=== PATIENT | male | born 1955 | race Caucasian/White ===

== ENCOUNTER 2017-03-19 05:40 | Day surgery (SDC) | payer OTHER ==
[2017-02-24 09:52] VITALS: Ht 170.2 cm; Wt 86.4 kg
[2017-03-19] VITALS (7 sets, daily range): BP systolic 101–156; BP diastolic 72–96; PULSE 64–78; TEMP 36.1–36.7; O2SAT 93–98
[~2017-03-19] VITALS: Ht 170.2 cm; Wt 86.4 kg
[~2017-03-19 05:40] MED LIST: ACET-1256 PO; AMLO-110 PO; APIX1TAB3 PO; ESCI10TA17 PO; HYDR25TA4 PO; LEVA45AE INH; LOSA1TAB38 PO; TPRSR/50 PO; TPRSR25 PO; TPRSR50 PO
[2017-03-19] MEDS ORDERED: LACTATED RINGER'S 1000ML 1,000 ML IV SCH (06:00)
--- NOTE | 2017-03-19 06:06 | History and Physical ---
History & Physical Date Mar 19, 2017. Chief Complaint Progressive SOB with CT thorax notable for mediastinal lymphadenopathy and elevated left caterina diaphragm with LLL atelectasis History of Present Illness The patient is a 61 year old male with complaints of Progressive SOB with CT thorax notable for mediastinal lymphadenopathy and elevated left caterina diaphragm with LLL atelectasis 61-year-old male presents the office for continuation of care for abnormal CT of the chest. Prior records reviewed. PMHx includes: Hypertension, atrial fibrillation, daily ETOH, and anxiety. 3-year h/o cigar consumption 1-2 cigars/ month. 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 CXR 08/2016: Elevated left hemidiaphragm. He was prescribed Proventil inhaler without significant improvement. OVer the past 1-year, dyspnea has progressed provoked with exertion and with forward flexion. Dyspnea is associated mild wheeze without cough as well as tightness in the epigastrium. CT chest 01/29/2017: bilateral mediastinal adenopathy with a persistently elevated left side hemidiaphragm with adjacent atelectasis in notable air bronchograms in the left base of the lung. Labs 01/23/2017 no leukocytosis or anemia. CTA 01/27/17 for renal vasculature (in the setting of hypertension) - left- sided caterina diaphragm elevated with masslike consolidation and bronchiectasis in the left base. He denies any h/o diabetes or neuropathy. He denies any h/o trauma or surgery of the abdomen or chest. HE denies any prior imaging completed of the chest preceding this most recent work-up. He denies symptoms of heartburn bur reports year round symptoms of allergies. CT chest 01/29/2017: LLL atelectasis with air bronchograms adjacent to the chronic elevated left hemidiaphragm. No centrally obstructing mass in the left. 5 x 7 mm pleural-based nodule in the left major fissure was likely a lymph node. Adjacent small nodules are seen. Several noncalcified nonspecific pulmonary nodules in the JACKELIN 4mm RUL. There are no filling defects. 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 Additional History Hepatic Disease: No Endocrine Disorder: No Kidney Disease: No Hypertension: Yes Heart Disease: Yes (A-fib on Eliquis ) Bleeding Tendencies: Yes (on Eliquis but hekd for procedure ) Infectious Diseases: No Allergies Coded Allergies: No Known Allergies (Unverified , 03/19/17) Home Medications Scheduled Amlodipine (Norvasc), 5 MG PO QAM Apixaban (Eliquis), 5 MG PO BID Escitalopram (Lexapro), 10 MG PO HS Hydrochlorothiazide (Hctz), 25 MG PO QAM Losartan Potassium (Cozaar), 100 MG PO NOON Metoprolol Succinate (Metoprolol Succinate ER), 25 MG PO QAM Metoprolol Succinate (Metoprolol Succinate ER), 50 MG PO QAM Metoprolol Succinate (Metoprolol Succinate ER), 50 MG PO HS Scheduled PRN Acetaminophen (Tylenol), 1,000 MG PO Q4H PRN for Pain Levalbuterol Tartrate (Levalbuterol Tartrate Hfa), 1 PUFF INH QID PRN for SHORTNESS OF BREATH Physical Examination Skin: warm/dry, no rash Eyes: normal inspection, EOMI, sclerae normal ENT: normal ENT inspection, pharynx normal Head: normocephalic, atraumatic Neck: supple, no adenopathy, trachea midline Respiratory/Chest: lungs clear, normal breath sounds, no respiratory distress Cardiovascular: regular rate, rhythm, no edema, no murmur Abdomen / GI: normal bowel sounds, non tender Back: normal inspection Extremities: normal inspection, normal range of motion Neurologic/Psych: no motor/sensory deficits, alert, normal reflexes, oriented x 3 Diagnosis Mediastinal Lymphadenopathy and Atelectasis of the LLL ASA Classification: ASA Class II Plan of Treatment EBUS, Flexible bronchoscopy with associated Tbbx, BAL, TTNA, TBNA and radial probe guidance
[2017-03-19] MEDS ORDERED: PROPOFOL IV EMULSION 10 MG/ML 20 ML VIAL IV ONE ×2 (06:21→07:55)
[2017-03-19] MEDS ORDERED: LIDOCAINE HCL 2% 2 ML VIAL (20MG/ML) ONE (06:21)
[2017-03-19] MEDS ORDERED: ROCURONIUM BROMIDE 10 MG/ML 5 ML VIAL ONE (06:21)
[2017-03-19] MEDS ORDERED: ONDANSETRON INJ 2 MG/ML 2 ML VIAL ONE (06:21)
[2017-03-19] MEDS ORDERED: FENTANYL CITRATE INJ 50 MCG/1 ML 2 ML VIAL ONE (06:22)
[2017-03-19] MEDS ORDERED: MIDAZOLAM HCL 1 MG/ML 2ML VIAL ONE (06:22)
--- NOTE | 2017-03-19 06:58 | History & Physical Bridge Note ---
H&P Re-Evaluation Bridge Note: I have examined the patient, reviewed the History & Physical and in the interval since the performance of the History & Physical I have noted the following changes of clinical significance: No changes noted
[2017-03-19] MEDS ORDERED: DEXAMETHASONE SOD INJ 4 MG/ML VIAL ONE (07:12)
--- NOTE | 2017-03-19 08:21 | Bronchoscopy Procedure Note ---
Bronchoscopy Procedure Note Procedure: Flexible-Bronchoscopy, EBUS,,TBNA, BAL (LLL), GETA Consent: Obtained through the patient placed into the chart Preprocedural diagnosis: mediastinal lymphadenopathy with elevated left caterina- diaphragm Postprocedural diagnosis: mediastinal lymphadenopathy with elevated left caterina- diaphragm Analgesia: GETA Sedation: GETA Procedure: The Olympus video bronchoscope and EBUS scope were used for this procedure Initially the flexible bronchoscope was used for evaluation of the airways. The ET tube was notably 5cm above the level of the negin. Trachea: Visualized portion of the trachea was anatomically within normal limits Negin: Anatomically within normal limits Right bronchial tree: Right mainstem bronchus: Anatomically within normal limits Right upper lobe: Anatomically within normal limits Bronchus intermedius: Anatomically within normal limits Right middle lobe: Anatomically within normal limits Right lower lobe: Anatomically within normal limits Findings: minimal diffuse mucus secretions throughout-out all lobes easily cleared Left bronchial tree: Left mainstem bronchus: Anatomically within normal limits Left upper lobe: Anatomically within normal limits Lingula: Anatomically within normal limits Left lower lobe: Anatomically within normal limits Findings: minimal diffuse mucus secretions throughout-out all lobes easily cleared EBUS/LAUREN: Tbbx Ravinder Stations: 7: # of passes 5 pass 3 & 4 noted to have adequate lymphocytes Evaluated Ravinder stations L4, L10, L11, R4, R10. R11 with no-significant findings Complications: None Follow-up: sent to extubated and sent PACU
[2017-03-19] MEDS ORDERED: GLYCOPYRROLATE INJ 0.2 MG/ML VIAL ONE (08:31)
[2017-03-19] MEDS ORDERED: NEOSTIGMINE METHYLSULFATE 5 MG/5 ML SYR ONE (08:31)
[2017-03-19] MEDS ORDERED: FENTANYL CITRATE INJ 50 MCG/1 ML 2 ML VIAL IV PRN (08:45)
[2017-03-19] MEDS ORDERED: ONDANSETRON INJ 2 MG/ML 2 ML VIAL IV PRN (08:45)
[2017-03-19] MEDS ORDERED: ATROPINE SULFATE 0.1 MG/ML 5ML SYR IV PRN (08:45)
--- NOTE | 2017-03-19 09:13 | Anesthesiology Progress Note ---
Anesthesia Post Op Note Date & Time Mar 19, 2017 at 09:12 Vital Signs Pain Intensity: 0 Vital Signs Past 12 Hours Date Time Temp Pulse Resp B/P (MAP) Pulse Ox O2 Delivery O2 Flow Rate FiO2 03/19/17 09:00 36.0 68 16 102/72 96 Oxymask 3 03/19/17 08:50 62 16 100/74 97 Oxymask 3 03/19/17 08:40 63 16 101/71 98 Oxymask 5 03/19/17 08:30 75 16 101/72 98 Oxymask 10 03/19/17 08:23 36.2 71 16 102/74 98 Oxymask 10 03/19/17 06:14 36.7 75 18 156/96 (116) 98 Room Air Notes Mental Status: alert / awake / arousable, participated in evaluation Pt Amnestic to Procedure: Yes Nausea / Vomiting: adequately controlled Pain: adequately controlled Airway Patency, RR, SpO2: stable & adequate BP & HR: stable & adequate Hydration State: stable & adequate Anesthetic Complications: no major complications apparent
--- NOTE | 2017-03-19 09:41 | Discharge Instructions ---
Discharge Instructions Date of Service Mar 19, 2017. Admission Reason for Admission: Elevated Hemidiaphragm, Mediastinal Adenopathy Abn Discharge Discharge Diagnosis / Problem: follow up at the [facility] Discharge Goals Goal(s): Diagnostic testing Activity Recommendations Activity Limitations: resume your previous activity . Instructions / Follow-Up Instructions / Follow-Up Follow-Up in the [facility] Current Hospital Diet Patient's current hospital diet: Discharge Diet Recommended Diet: Regular Diet Procedures Procedures Performed: Trans-Needle Aspiration Station #7 (x5), Bronchial Washings Left Lower Lobe Lung Pending Studies Studies pending at discharge: yes List of pending studies: Cytology/microscopic and microbiology evalaution of th esamples taken Medical Emergencies . Who to Call and When: Medical Emergencies: If at any time you feel your situation is an emergency, please call 911 immediately. . Non-Emergent Contact Non-Emergency issues call your: Institution Librarian Call Non-Emergent contact if: temperature is above 101.5 . . "Provider Documentation" section prepared by Mariano Sandhu. . VTE Core Measure Inpt VTE Proph given/why not?: Other Anticoagulation (Restart Elaquis this evening )
[2017-04-18] MEDS ORDERED: BNT20 PO (12:18)
[2017-07-16] MEDS ORDERED: LEVA45AE INH (09:20)
[2017-07-16] MEDS ORDERED: METO25TA3 PO (09:20)
[2017-07-16] MEDS ORDERED: ATV/1 PO (09:21)
[2017-07-23] MEDS ORDERED: ATV/1 PO (15:02)
== END 2017-03-19 12:05 | disposition home or self-care (01) ==
LOC: C.ACU 05:40
PROVIDERS: ATTEND Internal Medicine Critical Care Medicine
DX: R59.0 Localized enlarged lymph nodes (principal); J98.6 Disorders of diaphragm; R06.02 Shortness of breath; J98.11 Atelectasis; I10 Essential (primary) hypertension; I48.91 Unspecified atrial fibrillation; J45.909 Unspecified asthma, uncomplicated; F41.9 Anxiety disorder, unspecified; F32.9 Major depressive disorder, single episode, unspecified; F17.290 Nicotine dependence, other tobacco product, uncomplicated; Z68.29 Body mass index [BMI] 29.0-29.9, adult

== ENCOUNTER → 2017-03-24 | Outpatient (CLI) | payer OTHER ==
[~2017-03-24] MED LIST changes: +ATV/1 PO; +BNT20 PO; +CLC100 PO; +METO25TA3 PO; +OMEP20CA9 PO; +TRAM-10 PO
--- NOTE | 2017-03-24 11:12 | DIAGNOSTIC IMAGING REPORT ---
FLUOROSCOPIC SNIFF TEST CLINICAL HISTORY: Abnormal CT scan. Elevated left hemidiaphragm. COMPARISON STUDY: Chest CT dated 01/29/2017. FINDINGS: A fluoroscopic sniff test is performed. There is elevation of the left hemidiaphragm. There is normal excursion of the right hemidiaphragm. There is only limited movement of the left hemidiaphragm, with paradoxical motion as compared to the right. Fluoroscopy time: 0.6 minutes. 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 Electronically signed by: Teodoro Walker M.D. 03/24/2017 11:10 AM Dictated Date/Time: 03/24/2017 11:09 AM
== END | disposition home or self-care (01) ==
LOC: C.RAD 10:51
PROVIDERS: ATTEND Physician Assistant
DX: J98.6 Disorders of diaphragm (principal); R91.8 Other nonspecific abnormal finding of lung field

== ENCOUNTER 2017-04-16 10:22 | Inpatient (IN) | payer OTHER ==
[~2017-04-16] VITALS: Ht 172.7 cm; Wt 87.4 kg
[~2017-04-16 10:22] MED LIST changes: -ATV/1 PO; -BNT20 PO; -CLC100 PO; -METO25TA3 PO; -OMEP20CA9 PO; -TRAM-10 PO
--- NOTE | 2017-04-16 11:27 | EMERGENCY ROOM VISIT NOTE ---
History Report prepared by Del: Riley Prasad Under the Supervision of: Dr. Vinnie Bird M.D. First contact with patient: 10:44 Chief Complaint: ARM PAIN Stated Complaint: LEFT ARM PAIN AND TIGHNESS History of Present Illness The patient is a 61 year old male who presents to the Emergency Room with complaints of improving left arm pain starting last night. The patient states that last night he started to get pin and numbness in his left arm that went into his neck and down his back. He woke up this morning, and he was having more pain this morning, and his hand was swollen. He additionally states that he is short of breath. The patient has a history of A-fib, and he states that he got a stress test 6 weeks ago which he cleared, and he denies any history of a heart catheterization. 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 He states that he is on eliquis, and he just finished prednisone and doxycycline. Source of History: patient Onset: last night Position: arm (left) Quality: numbness, other (pain) Timing: other (improving) Associated Symptoms: + SOB, + numbness Note: Associated symptoms: Left hand swollen Review of Systems See HPI for pertinent positives & negatives. A total of 10 systems reviewed and were otherwise negative. Past Medical & Surgical Medical Problems: (1) Dyspnea on exertion (2) Early satiety Social History Smoking Status: Former Smoker Marital Status: Housing Status: lives with family Occupation Status: employed Current/Historical Medications Scheduled Amlodipine (Norvasc), 5 MG PO QAM Apixaban (Eliquis), 5 MG PO BID Escitalopram (Lexapro), 10 MG PO HS Hydrochlorothiazide (Hctz), 25 MG PO QAM Losartan Potassium (Cozaar), 100 MG PO NOON Metoprolol Succinate (Metoprolol Succinate ER), 25 MG PO QAM Metoprolol Succinate (Metoprolol Succinate ER), 50 MG PO QAM Metoprolol Succinate (Metoprolol Succinate ER), 50 MG PO HS Omeprazole (Prilosec), 20 MG PO DAILY Scheduled PRN Acetaminophen (Tylenol), 1,000 MG PO Q4H PRN for Pain Levalbuterol Tartrate (Levalbuterol Tartrate Hfa), 1 PUFF INH QID PRN for SHORTNESS OF BREATH Allergies Coded Allergies: No Known Allergies (Unverified , 04/16/17) Physical Exam Vital Signs Date Time Temp Pulse Resp B/P (MAP) Pulse Ox O2 Delivery O2 Flow Rate FiO2 04/16/17 12:15 86 20 164/104 100 Nebulizer 10.0 04/16/17 11:45 94 Room Air 04/16/17 11:45 94 Room Air 04/16/17 11:37 79 16 94 Room Air 04/16/17 11:23 78 04/16/17 10:29 36.5 88 19 177/108 94 Room Air Physical Exam GENERAL: Patient is a healthy-appearing well-nourished male HEAD: Normocephalic atraumatic EYES: Ocular movements intact pupils equal and react to light OROPHARYNX mucous membranes are moist no exudates present no erythema or edema present NECK: Supple no nuchal rigidity CHEST: Good equal expansion LUNGS: Wheezing at the left lower base CARDIAC: Normal S1 and S2 ABDOMEN: Soft nontender no guarding BACK: No CVA tenderness EXTREMITIES: No pain upon palpation normal muscle strength in all groups no clubbing cyanosis or edema NEURO: Patient is following commands and answering questions appropriately. Alert and oriented x3 Cranial Nerves 2-12 grossly intact Medical Decision & Procedures ER Provider Diagnostic Interpretation: Radiology results as stated below per my review and radiologist interpretation: CHEST ONE VIEW PORTABLE CLINICAL HISTORY: CHEST PAIN dyspnea COMPARISON STUDY: CT study dated 01/29/2017 FINDINGS: Chronic elevation left hemidiaphragm. Chronic atelectatic change left base. Subtle interstitial prominence throughout the right hemithorax. No significant left upper lung infiltrative process. No significant cardiomegaly. IMPRESSION: 1. Chronic change left base including left basilar bronchiectasis. 2. Chronic elevation left hemidiaphragm. 3. Slight interstitial prominence right hemithorax. Electronically signed by: Harrison Gifford M.D. 04/16/2017 11:47 AM Dictated Date/Time: 04/16/2017 11:45 AM (CHEST FOR PE) ANGIO WITH CT DOSE: 1280.23 mGy.cm HISTORY: Chest pain dyspnea TECHNIQUE: Multiaxial CT images of the chest were performed following the intravenous administration of contrast to evaluate the pulmonary arteries. Maximal intensity projection images were also obtained. COMPARISON STUDY: medical group dated 01/29/2017 FINDINGS: Thoracic aorta is normal in course and caliber. There is moderate mediastinal and hilar adenopathy. This is unchanged from the prior exam. Nodes in the azygos esophageal recess measure up to 10 mm. Periaortic and aortopulmonary window nodes measure to 7 mm. Bilateral hilar nodes are present also which appear stable compared to the prior exam. Subcarinal adenopathy is also stable. There is a 5 mm nodular density right upper lung transaxial image 109. There are findings of bronchiectatic changes combined with atelectatic change left and to a lesser extent right base with chronic elevation left hemidiaphragm. This is stable. Pulmonary arterial vasculature enhances uniformly. Study is considered negative for pulmonary embolus IMPRESSION: 1. Study is negative for pulmonary embolus. 2. Atelectatic and bronchiectatic change left base unaltered from the prior study. 3. Stable pulmonary nodularity. 4. Stable mediastinal and hilar adenopathy. The above report was generated using voice recognition software. It may contain grammatical, syntax or spelling errors. Electronically signed by: Harrison Gifford M.D. 04/16/2017 12:38 PM Dictated Date/Time: 04/16/2017 12:34 PM Laboratory Results 04/16/17 11:25 Red Blood Count 4.51, Mean Corpuscular Volume 87.4, Mean Corpuscular Hemoglobin 31.0, Mean Corpuscular Hemoglobin Concent 35.5, Mean Platelet Volume 9.0, Neutrophils (%) (Auto) 76.4, Lymphocytes (%) (Auto) 10.1, Monocytes (%) (Auto) 11.0, Eosinophils (%) (Auto) 2.0, Basophils (%) (Auto) 0.3, Neutrophils # (Auto ) 4.92, Lymphocytes # (Auto) 0.65, Monocytes # (Auto) 0.71, Eosinophils # (Auto ) 0.13, Basophils # (Auto) 0.02 04/16/17 11:25 Test 04/16/17 11:05 04/16/17 11:25 04/16/17 11:32 04/16/17 12:05 Prothrombin Time 11.8 SECONDS (9.0-12.0) Prothromb Time International Ratio 1.1 (0.9-1.1) White Blood Count 6.44 K/uL (4.8-10.8) Red Blood Count 4.51 M/uL (4.7-6.1) Hemoglobin 14.0 g/dL (14.0-18.0) Hematocrit 39.4 % (42-52) Mean Corpuscular Volume 87.4 fL (80-100) Mean Corpuscular Hemoglobin 31.0 pg (25-34) Mean Corpuscular Hemoglobin Concent 35.5 g/dl (32-36) Platelet Count 264 K/uL (130-400) Mean Platelet Volume 9.0 fL (7.4-10.4) Neutrophils (%) (Auto) 76.4 % Lymphocytes (%) (Auto) 10.1 % Monocytes (%) (Auto) 11.0 % Eosinophils (%) (Auto) 2.0 % Basophils (%) (Auto) 0.3 % Neutrophils # (Auto) 4.92 K/uL (1.4-6.5) Lymphocytes # (Auto) 0.65 K/uL (1.2-3.4) Monocytes # (Auto) 0.71 K/uL (0.11-0.59) Eosinophils # (Auto) 0.13 K/uL (0-0.5) Basophils # (Auto) 0.02 K/uL (0-0.2) RDW Standard Deviation 39.6 fL (36.4-46.3) RDW Coefficient of Variation 12.3 % (11.5-14.5) Immature Granulocyte % (Auto) 0.2 % Immature Granulocyte # (Auto) 0.01 K/uL (0.00-0.02) Est Creatinine Clear Calc Drug Dose 69.6 ml/min Estimated GFR () 75.7 Estimated GFR (Non- 65.3 BUN/Creatinine Ratio 13.6 (10-20) Calcium Level 9.5 mg/dl (8.5-10.1) Total Bilirubin 0.6 mg/dl (0.2-1) Direct Bilirubin 0.1 mg/dl (0-0.2) Aspartate Amino Transf (AST/SGOT) 35 U/L (15-37) Alanine Aminotransferase (ALT/SGPT) 64 U/L (12-78) Alkaline Phosphatase 74 U/L (45-117) Total Creatine Kinase 56 U/L (39-308) Creatine Kinase MB 2.1 ng/ml (0.5-3.6) Creatine Kinase MB Ratio 3.8 (0-3.0) Troponin I < 0.015 ng/ml (0-0.045) Total Protein 7.8 gm/dl (6.4-8.2) Albumin 4.0 gm/dl (3.4-5.0) Lipase 114 U/L (73-393) Lyme Disease IgG Antibody POS (NEG) Bedside D-Dimer > 450 ng/mlFEU (0-450) Bedside Hemoglobin 12.9 g/dl (14.0-18.0) Bedside Hematocrit 38 % (42-52) Bedside Sodium 131 mEq/L (135-144) Bedside Potassium 4.3 mEq/L (3.3-5.0) Bedside Chloride 92 mEq/L (101-112) Bedside Total CO2 27 mEq/l (24-31) Anion Gap 18.0 mmol/L (16-25) Bedside Blood Urea Nitrogen 18 mg/dl (7-18) Bedside Creatinine 1.0 mg/dl (0.6-1.3) Bedside Glucose (other) 113 mg/dl (70-99) Bedside Ionized Calcium (Jaquan) 1.21 mmol/l (1.12-1.32) Labs reviewed by ED physician. Medications Administered Medications (Trade) Dose Ordered Sig/Jonathon Route Start Time Stop Time Status Last Admin Dose Admin Albuterol/ Ipratropium (Duoneb) 12 ml ONE ONCE INH 04/16/17 11:30 04/16/17 11:31 DC 04/16/17 11:37 12 ML ECG Indication: other (left arm pain) Rate (beats per minute): 80 Rhythm: atrial fibrillation Findings: PVC, no acute ischemic change ED Course 1044: Past medical records reviewed. The patient was evaluated in room C11. A complete history and physical examination was performed. 1130: DuoNeb 12ml INH 1305:I discussed the patient's case with Dr. Atwood, Hospitalist. He is going to evaluate the patient for further treatment Medical Decision Differential diagnosis: Etiologies such as infections, reactive airway disease, pneumonia, pneumothorax , COPD, CHF, cardiac ischemia, pulmonary embolism, musculoskeletal, gastrointestinal, as well as others were entertained. Blood Pressure Screening: Patient was found to have an elevated blood pressure and was referred to their primary care doctor for recheck and further treatment Medication Reconciliation: I attest that I have personally reviewed the patient' s current medication list This is a 61-year-old male who presents emergency department complaining of left -sided chest pain as well as shortness of breath. 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 Based on this finding I felt that the patient should be admitted to the hospital. He has a normal CK-MB troponin. Due to the patient's length of symptoms I also did take a Lyme titer. This appears to be positive however we will await western blot results. I did discuss the case with the hospitalist service who agreed to admit the patient. Patient was in agreement with the treatment plan. Consults Time Called: 1301 Consulting Physician: Dr. Atwood Hospitalist Returned Call: 1305 I discussed the patient's case with Yosvany Blakc. He is going to evaluate the patient for further treatment. Impression Primary Impression: Vasovagal episode Scribe Attestation The scribe's documentation has been prepared under my direction and personally reviewed by me in its entirety. I confirm that the note above accurately reflects all work, treatment, procedures, and medical decision making performed by me. Departure Information Dispostion Being Evaluated By Hospitalist Referrals Harrison Rivers M.D. (PCP) Patient Instructions My [facility]
[2017-04-16] MEDS ORDERED: ALBUT/IPRATROP 3MG/0.5MG NEB 3 ML VIAL INH ONE (11:30)
[2017-04-16 11:35] LABS: BASO % 0.3 %; BASO ABS # 0.02 K/uL (0-0.2); COMPLETE YES; HEMATOCRIT 39.4 % (42-52); IG% 0.2 %; LYMPH % 10.1 %; LYMPH ABS # 0.65 K/uL (1.2-3.4); MEAN CELL VOLUME 87.4 fL (80-100); MEAN CORPUSCULAR HGB CONC 35.5 g/dl (32-36); NEUT % 76.4 %; PLATELET COUNT 264 K/uL (130-400); RED BLOOD COUNT 4.51 M/uL (4.7-6.1); WHITE BLOOD COUNT 6.44 K/uL (4.8-10.8)
[2017-04-16 11:37] VITALS: PULSE 79; O2SAT 94
[2017-04-16] MEDS ORDERED: OMEP20CA9 PO (11:44)
--- NOTE | 2017-04-16 11:48 | DIAGNOSTIC IMAGING REPORT ---
CHEST ONE VIEW PORTABLE CLINICAL HISTORY: CHEST PAIN dyspnea COMPARISON STUDY: CT study dated 01/29/2017 FINDINGS: Chronic elevation left hemidiaphragm. Chronic atelectatic change left base. Subtle interstitial prominence throughout the right hemithorax. No significant left upper lung infiltrative process. No significant cardiomegaly. IMPRESSION: 1. Chronic change left base including left basilar bronchiectasis. 2. Chronic elevation left hemidiaphragm. 3. Slight interstitial prominence right hemithorax. Electronically signed by: Harrison Gifford M.D. 04/16/2017 11:47 AM Dictated Date/Time: 04/16/2017 11:45 AM
[2017-04-16 11:59] LABS: ALT/SGPT 64 U/L (12-78); BLOOD UREA NITROGEN 16 mg/dl (7-18); BUN/CREATININE RATIO 13.6 (10-20); CALCIUM 9.5 mg/dl (8.5-10.1); CARBON DIOXIDE 27 mmol/L (21-32); CHLORIDE 96 mmol/L (98-107); GLUCOSE 114 mg/dl (70-99); POTASSIUM 4.1 mmol/L (3.5-5.1); SODIUM 131 mmol/L (136-145)
[2017-04-16] MEDS ORDERED: OPTIRAY 320 IV PRN (12:00)
[2017-04-16 12:04] LABS: ALKALINE PHOSPHATASE 74 U/L (45-117); AST/SGOT 35 U/L (15-37); CKMB/CK RATIO 3.8 (0-3.0)
[2017-04-16 12:16] LABS: ISTAT HEMOGLOBIN 12.9 g/dl (14.0-18.0); ISTAT IONIZED CALCIUM 1.21 mmol/l (1.12-1.32)
--- NOTE | 2017-04-16 12:39 | DIAGNOSTIC IMAGING REPORT ---
(CHEST FOR PE) ANGIO WITH CT DOSE: 1280.23 mGy.cm HISTORY: Chest pain dyspnea TECHNIQUE: Multiaxial CT images of the chest were performed following the intravenous administration of contrast to evaluate the pulmonary arteries. Maximal intensity projection images were also obtained. COMPARISON STUDY: medical group dated 01/29/2017 FINDINGS: Thoracic aorta is normal in course and caliber. There is moderate mediastinal and hilar adenopathy. This is unchanged from the prior exam. Nodes in the azygos esophageal recess measure up to 10 mm. Periaortic and aortopulmonary window nodes measure to 7 mm. Bilateral hilar nodes are present also which appear stable compared to the prior exam. Subcarinal adenopathy is also stable. There is a 5 mm nodular density right upper lung transaxial image 109. There are findings of bronchiectatic changes combined with atelectatic change left and to a lesser extent right base with chronic elevation left hemidiaphragm. This is stable. Pulmonary arterial vasculature enhances uniformly. Study is considered negative for pulmonary embolus IMPRESSION: 1. Study is negative for pulmonary embolus. 2. Atelectatic and bronchiectatic change left base unaltered from the prior study. 3. Stable pulmonary nodularity. 4. Stable mediastinal and hilar adenopathy. The above report was generated using voice recognition software. It may contain grammatical, syntax or spelling errors. Electronically signed by: Harrison Gifford M.D. 04/16/2017 12:38 PM Dictated Date/Time: 04/16/2017 12:34 PM
[2017-04-16 12:48] LABS: LYME DISEASE AB IGG POS (NEG); LYME DISEASE AB IGM EQUIVOCAL (NEG)
[2017-04-16] MEDS ORDERED: ALUMINUM/MAGNESIUM/SIMETH (MAALOX MAX) 30 ML UDC PO PRN (14:00)
[2017-04-16] MEDS ORDERED: POLYETHYLENE (MIRALAX) 17 GM PACK PO PRN (14:00)
[2017-04-16] MEDS ORDERED: HEPARIN SOD 5000 UNIT/0.5 ML CARP SQ SCH (14:00)
[2017-04-16] MEDS ORDERED: ONDANSETRON INJ 2 MG/ML 2 ML VIAL IV PRN (14:00)
[2017-04-16] MEDS ORDERED: MAGNESIUM HYDROXIDE SUSP 30 ML UDC PO PRN (14:00)
[2017-04-16] MEDS ORDERED: AMLODIPINE BESYLATE 5 MG TAB PO STA (14:35)
[2017-04-16 15:20] VITALS: BP 150/95; PULSE 84; TEMP 36.4; O2SAT 94; Ht 172.7 cm; Wt 87.4 kg
[2017-04-16] MEDS ORDERED: IV FLUIDS COMPLETED PRN (15:30)
[2017-04-16 16:00] VITALS: O2SAT 94
[2017-04-16 16:06] LABS: INR 1.1 (0.9-1.1); PROTHROMBIN TIME (PATIENT) 11.8 SECONDS (9.0-12.0)
--- NOTE | 2017-04-16 16:16 | History and Physical ---
History & Physical Date & Time of Service: Apr 16, 2017 at 16:06 Chief Complaint: Dyspnea On Exertion, Early Satiety Primary Care Physician: Harrison Rivers M.D. History of Present Illness Source: patient, clinic records, hospital records This is a 61 year old male with a PMH of paroxysmal atrial fibrillation, HTN, depression, elevated hemidiaphragm presents with a chronic dyspnea on exertion and a new onset L arm/shoulder pain. Patient states that he has been dealing with a long history of dyspnea - has seen pulmonology and they have noted that he has a L sided hemidiaphragm, unknown cause. Has had PFTs, bronchoscopy amongst other testing - and so far no significant findings. Has seen cardiology recently and had a stress test about 6-8 weeks prior and was negative. Denies chest pain/pressure. States his other complaint is early satiety and abdominal cramping, excessive gas, etc. Was told by PCP that they would consider an EGD as an outpatient. Was asking if this could be done as an inpatient instead. Otherwise, in no acute distress. Social History Smoking Status: Former Smoker Marital Status: Occupational Status: employed Allergies Coded Allergies: No Known Allergies (Unverified , 04/16/17) Home Medications Scheduled Amlodipine (Norvasc), 5 MG PO QAM Apixaban (Eliquis), 5 MG PO BID Escitalopram (Lexapro), 10 MG PO HS Hydrochlorothiazide (Hctz), 25 MG PO QAM Losartan Potassium (Cozaar), 100 MG PO NOON Metoprolol Succinate (Metoprolol Succinate ER), 25 MG PO QAM Metoprolol Succinate (Metoprolol Succinate ER), 50 MG PO QAM Metoprolol Succinate (Metoprolol Succinate ER), 50 MG PO HS Omeprazole (Prilosec), 20 MG PO DAILY Scheduled PRN Acetaminophen (Tylenol), 1,000 MG PO Q4H PRN for Pain Levalbuterol Tartrate (Levalbuterol Tartrate Hfa), 1 PUFF INH QID PRN for SHORTNESS OF BREATH Review of Systems Constitutional: No fever, No chills, No weakness, No fatigue Eyes: No worsening of vision ENT: No hearing loss Respiratory: + dyspnea on exertion, No cough, No sputum, No wheezing, No shortness of breath, No dyspnea at rest, No hemoptysis Cardiovascular: No chest pain, No orthopnea, No edema, No palpitations Abdomen: + problem reported (cramping, early fullness), No pain, No nausea, No vomiting, No diarrhea, No constipation, No GI bleeding Musculoskeletal: + joint pain (L shoulder/L arm pain), No muscle pain Genitourinary - Male: No hematuria, No dysuria, No urinary frequency, No urinary urgency Neurologic: No weakness, No numbness/tingling, No vertigo, No balance problems Psychiatric: No depression symptoms (controlled with medications), No anxiety, No insomnia Endocrine: No fatigue Hematologic / Lymphatic: No abnormal bleeding/bruising Integumentary: No rash Allergic / Immunologic: No environmental allergies, No seasonal allergies Physical Exam Vital Signs Date Time Temp Pulse Resp B/P (MAP) Pulse Ox O2 Delivery O2 Flow Rate FiO2 04/16/17 15:20 36.4 84 18 150/95 94 Room Air 04/16/17 14:15 80 20 129/98 94 Room Air 04/16/17 12:15 86 20 164/104 100 Nebulizer 10.0 04/16/17 11:45 94 Room Air 04/16/17 11:45 94 Room Air 04/16/17 11:37 79 16 94 Room Air 04/16/17 11:23 78 04/16/17 10:29 36.5 88 19 177/108 94 Room Air General Appearance: no apparent distress Head: normocephalic, atraumatic Eyes: normal inspection ENT: hearing grossly normal Neck: supple Respiratory/Chest: chest non-tender, lungs clear, normal breath sounds, no respiratory distress, no accessory muscle use Cardiovascular: regular rate, rhythm, no edema, no murmur Abdomen/GI: normal bowel sounds, non tender, soft, + distended Extremities/Musculoskelatal: normal capillary refill, no pedal edema Neurologic/Psych: no motor/sensory deficits, alert, normal mood/affect Skin: normal color Lymphatic: no adenopathy Diagnostics Laboratory Results Results Past 24 Hours Test 04/16/17 11:05 04/16/17 11:25 04/16/17 11:32 04/16/17 12:05 Range/Units White Blood Count 6.44 4.8-10.8 K/uL Red Blood Count 4.51 4.7-6.1 M/uL Hemoglobin 14.0 14.0-18.0 g/dL Hematocrit 39.4 42-52 % Mean Corpuscular Volume 87.4 80-100 fL Mean Corpuscular Hemoglobin 31.0 25-34 pg Mean Corpuscular Hemoglobin Concent 35.5 32-36 g/dl Platelet Count 264 130-400 K/uL Mean Platelet Volume 9.0 7.4-10.4 fL Neutrophils (%) (Auto) 76.4 % Lymphocytes (%) (Auto) 10.1 % Monocytes (%) (Auto) 11.0 % Eosinophils (%) (Auto) 2.0 % Basophils (%) (Auto) 0.3 % Neutrophils # (Auto) 4.92 1.4-6.5 K/uL Lymphocytes # (Auto) 0.65 1.2-3.4 K/uL Monocytes # (Auto) 0.71 0.11-0.59 K/uL Eosinophils # (Auto) 0.13 0-0.5 K/uL Basophils # (Auto) 0.02 0-0.2 K/uL RDW Standard Deviation 39.6 36.4-46.3 fL RDW Coefficient of Variation 12.3 11.5-14.5 % Immature Granulocyte % (Auto) 0.2 % Immature Granulocyte # (Auto) 0.01 0.00-0.02 K/uL Sodium Level 131 136-145 mmol/L Potassium Level 4.1 3.5-5.1 mmol/L Chloride Level 96 98-107 mmol/L Carbon Dioxide Level 27 21-32 mmol/L Anion Gap 8.0 18.0 16-25 mmol/L Blood Urea Nitrogen 16 7-18 mg/dl Creatinine 1.20 0.60-1.40 mg/dl Est Creatinine Clear Calc Drug Dose 69.6 ml/min Estimated GFR () 75.7 Estimated GFR (Non- 65.3 BUN/Creatinine Ratio 13.6 10-20 Random Glucose 114 70-99 mg/dl Calcium Level 9.5 8.5-10.1 mg/dl Total Bilirubin 0.6 0.2-1 mg/dl Direct Bilirubin 0.1 0-0.2 mg/dl Aspartate Amino Transf (AST/SGOT) 35 15-37 U/L Alanine Aminotransferase (ALT/SGPT) 64 12-78 U/L Alkaline Phosphatase 74 45-117 U/L Total Creatine Kinase 56 39-308 U/L Creatine Kinase MB 2.1 0.5-3.6 ng/ml Creatine Kinase MB Ratio 3.8 0-3.0 Troponin I < 0.015 0-0.045 ng/ml Total Protein 7.8 6.4-8.2 gm/dl Albumin 4.0 3.4-5.0 gm/dl Lipase 114 73-393 U/L Lyme Disease IgG Antibody POS NEG Lyme Disease IgM Antibody EQUIVOCAL NEG Bedside D-Dimer > 450 0-450 ng/mlFEU Bedside Hemoglobin 12.9 14.0-18.0 g/dl Bedside Hematocrit 38 42-52 % Bedside Sodium 131 135-144 mEq/L Bedside Potassium 4.3 3.3-5.0 mEq/L Bedside Chloride 92 101-112 mEq/L Bedside Total CO2 27 24-31 mEq/l Bedside Blood Urea Nitrogen 18 7-18 mg/dl Bedside Creatinine 1.0 0.6-1.3 mg/dl Bedside Glucose (other) 113 70-99 mg/dl Bedside Ionized Calcium (Jaquan) 1.21 1.12-1.32 mmol/l Diagnostic Radiology (CHEST FOR PE) ANGIO WITH CT DOSE: 1280.23 mGy.cm HISTORY: Chest pain dyspnea TECHNIQUE: Multiaxial CT images of the chest were performed following the intravenous administration of contrast to evaluate the pulmonary arteries. Maximal intensity projection images were also obtained. COMPARISON STUDY: [facility] dated 01/29/2017 FINDINGS: Thoracic aorta is normal in course and caliber. There is moderate mediastinal and hilar adenopathy. This is unchanged from the prior exam. Nodes in the azygos esophageal recess measure up to 10 mm. Periaortic and aortopulmonary window nodes measure to 7 mm. Bilateral hilar nodes are present also which appear stable compared to the prior exam. Subcarinal adenopathy is also stable. There is a 5 mm nodular density right upper lung transaxial image 109. There are findings of bronchiectatic changes combined with atelectatic change left and to a lesser extent right base with chronic elevation left hemidiaphragm. This is stable. Pulmonary arterial vasculature enhances uniformly. Study is considered negative for pulmonary embolus IMPRESSION: 1. Study is negative for pulmonary embolus. 2. Atelectatic and bronchiectatic change left base unaltered from the prior study. 3. Stable pulmonary nodularity. 4. Stable mediastinal and hilar adenopathy. EKG Atrial fibrillation with premature ventricular or aberrantly conducted complexes Nonspecific ST abnormality Impression Assessment and Plan This is a 61 year old male with a PMH of paroxysmal atrial fibrillation, HTN, depression, elevated hemidiaphragm presents with a chronic dyspnea on exertion and a new onset L arm/shoulder pain. Dyspnea on Exertion noted L hemidiaphragm now complaint of L arm pain will trend cardiac enzymes recent echo and stress test - which were negative has had bronchoscopy and CT chest - no PE noted here; no other findings as per patient PFTs were normal will consult pulmonology for any further input Early Satiety early fullness, cramping, gas, some nausea noted was told by PCP that he may need EGD will consult GI as this was his main complaint today Paroxysmal A. Fib continue Apixaban and Metoprolol currently in NSR and rate is controlled HTN blood pressure elevated in the ER will give an extra dose of amlodipine continue home medications Depression/Anxiety continue home meds DVT ppx Apixaban FULL CODE Advanced Directives Existing Living Will: No Existing Power of Signal Maintainer Helper: No VTE Prophylaxis VTE Risk Assessment Done? Y/N: Yes Risk Level: Moderate
--- NOTE | 2017-04-16 16:30 | Gastrointestinal Consultation ---
Gastrointestinal Consultation Date of Consultation: Apr 16, 2017 Attending Physician: Toby Atwood Consulting Physician: Valerie Owusu Reason for Consultation: Abd fullness, early satiety History of Present Illness Patient is a 61 year old male who presented to L arm pain since last night associated w numbness/tingling & slight SOB seen by GI for c/o abd fullness and early satiety. Pt reports that for about a year now he may be walking or just after eating feels his mid abd area cramping up. This can cause severe discomfort and may last 10 mins or more. He may have trouble breathing when this happens and causes him to be anxious. He denies any associated n/v, weight or appetite loss, changes in BM habits including blood in stools related to this. He does note upper abd area bloating, increasing flatus. He also was a heavy drinker up to 6 beers a night, cut down now to 2 a day. Was having reflux symptoms but improved since started on Omeprazole by his PCP (Dr. Rivers). He also had abd u/s for the above complaints ordered by Dr. Rivers w/o acute findings except possible biliary sludge. Of note he never had endoscopic evals, father hx of colon ca. Reviewed labs & imaging studies: notable for elevated Ddimer >450. He was already on Eliquis for Afib, PE ruled out via CT thorax. + Lymes IgM Ab and IgG Ab. CXR w bibasilar bronchioectasis, R hemithorax prominence. Past Medical/Surgical History Medical Problems: (1) Vasovagal episode Status: Acute Past Medical History: HTN DVT Anxiety Family History Father - colon ca Social History Smoking Status: Former Smoker Alcohol Use: occasionally Drug Use: none Marital Status: Housing Status: lives with family Occupation Status: employed Allergies Coded Allergies: No Known Allergies (Unverified , 04/16/17) Current Medications Home Meds and Scripts Medications Dose Route/Sig Max Daily Dose Days Date Category Prilosec (Omeprazole) 20 Mg Cap 20 Mg PO DAILY 04/16/17 Reported Tylenol (Acetaminophen) 500 Mg Tab 1,000 Mg PO Q4H PRN 02/24/17 Reported Metoprolol Succinate ER (Metoprolol Succinate) 50 Mg Tabcr 50 Mg PO HS 02/24/17 Reported Metoprolol Succinate ER (Metoprolol Succinate) 50 Mg Tabcr 50 Mg PO QAM 02/24/17 Reported Metoprolol Succinate ER (Metoprolol Succinate) 25 Mg Tabcr 25 Mg PO QAM 02/24/17 Reported Levalbuterol Tartrate Hfa (Levalbuterol Tartrate) 45 Mcg/Act Aer 1 Puff INH QID PRN 02/24/17 Reported Cozaar (Losartan Potassium) 100 Mg Tab 100 Mg PO NOON 02/24/17 Reported Hctz (Hydrochlorothiazide) 25 Mg Tab 25 Mg PO QAM 02/24/17 Reported Norvasc (Amlodipine Besylate) 5 Mg Tab 5 Mg PO QAM 02/24/17 Reported Lexapro (Escitalopram Oxalate) 10 Mg Tab 10 Mg PO HS 02/24/17 Reported Eliquis (Apixaban) 5 Mg Tab 5 Mg PO BID 02/24/17 Reported Review of Systems Constitutional: No fever, No chills Respiratory: No cough, No shortness of breath Cardiac: No chest pain Abdomen: + see HPI, + pain, No nausea, No vomiting Musculoskeletal: + see HPI Physical Exam Date Time Temp Pulse Resp B/P (MAP) Pulse Ox O2 Delivery O2 Flow Rate FiO2 04/16/17 15:20 36.4 84 18 150/95 94 Room Air 04/16/17 14:15 80 20 129/98 94 Room Air 04/16/17 12:15 86 20 164/104 100 Nebulizer 10.0 04/16/17 11:45 94 Room Air 04/16/17 11:45 94 Room Air 04/16/17 11:37 79 16 94 Room Air 04/16/17 11:23 78 04/16/17 10:29 36.5 88 19 177/108 94 Room Air General Appearance: WD/WN, no apparent distress Eyes: normal inspection, PERRL, EOMI Neck: supple, no JVD, trachea midline Respiratory/Chest: normal breath sounds, no respiratory distress, no accessory muscle use Cardiovascular: regular rate, rhythm, no gallop, no murmur Abdomen: normal bowel sounds, non tender, soft Extremities: normal inspection, no pedal edema, no calf tenderness Neurologic/Psych: alert, normal mood/affect, oriented x 3 Skin: normal color, no jaundice, no rash Laboratory Results Last 24 Hours Test 04/16/17 11:05 04/16/17 11:25 04/16/17 11:32 04/16/17 12:05 Prothrombin Time 11.8 SECONDS Prothromb Time International Ratio 1.1 White Blood Count 6.44 K/uL Red Blood Count 4.51 M/uL Hemoglobin 14.0 g/dL Hematocrit 39.4 % Mean Corpuscular Volume 87.4 fL Mean Corpuscular Hemoglobin 31.0 pg Mean Corpuscular Hemoglobin Concent 35.5 g/dl Platelet Count 264 K/uL Mean Platelet Volume 9.0 fL Neutrophils (%) (Auto) 76.4 % Lymphocytes (%) (Auto) 10.1 % Monocytes (%) (Auto) 11.0 % Eosinophils (%) (Auto) 2.0 % Basophils (%) (Auto) 0.3 % Neutrophils # (Auto) 4.92 K/uL Lymphocytes # (Auto) 0.65 K/uL Monocytes # (Auto) 0.71 K/uL Eosinophils # (Auto) 0.13 K/uL Basophils # (Auto) 0.02 K/uL RDW Standard Deviation 39.6 fL RDW Coefficient of Variation 12.3 % Immature Granulocyte % (Auto) 0.2 % Immature Granulocyte # (Auto) 0.01 K/uL Sodium Level 131 mmol/L Potassium Level 4.1 mmol/L Chloride Level 96 mmol/L Carbon Dioxide Level 27 mmol/L Anion Gap 8.0 mmol/L 18.0 mmol/L Blood Urea Nitrogen 16 mg/dl Creatinine 1.20 mg/dl Est Creatinine Clear Calc Drug Dose 69.6 ml/min Estimated GFR () 75.7 Estimated GFR (Non- 65.3 BUN/Creatinine Ratio 13.6 Random Glucose 114 mg/dl Calcium Level 9.5 mg/dl Total Bilirubin 0.6 mg/dl Direct Bilirubin 0.1 mg/dl Aspartate Amino Transf (AST/SGOT) 35 U/L Alanine Aminotransferase (ALT/SGPT) 64 U/L Alkaline Phosphatase 74 U/L Total Creatine Kinase 56 U/L Creatine Kinase MB 2.1 ng/ml Creatine Kinase MB Ratio 3.8 Troponin I < 0.015 ng/ml Total Protein 7.8 gm/dl Albumin 4.0 gm/dl Lipase 114 U/L Lyme Disease IgG Antibody POS Lyme Disease IgM Antibody EQUIVOCAL Bedside D-Dimer > 450 ng/mlFEU Bedside Hemoglobin 12.9 g/dl Bedside Hematocrit 38 % Bedside Sodium 131 mEq/L Bedside Potassium 4.3 mEq/L Bedside Chloride 92 mEq/L Bedside Total CO2 27 mEq/l Bedside Blood Urea Nitrogen 18 mg/dl Bedside Creatinine 1.0 mg/dl Bedside Glucose (other) 113 mg/dl Bedside Ionized Calcium (Jaquan) 1.21 mmol/l Impression Patient is a 61 year old male seen for abd bloating/cramping, sense of fullness after eating. Differential diagnoses include: uncontrolled GERD, gastritis, PUD , IBS, SIBO Plan - Continue home dose of PPI - Trial Dicyclomine 20mg BID; low FODMAPs diet - OK for outpt EGD eval and colonoscopy for colon ca screening.
[2017-04-16] MEDS: SODIUM CHLORIDE 0.9% 1000ML 1,000 ML IV SCH (17:25)
[2017-04-16] MEDS: ACETAMINOPHEN 325 MG TAB PO PRN ×2 (17:39→23:29)
[2017-04-16 19:34] VITALS: BP 118/77; PULSE 68; TEMP 36.5; O2SAT 96
[2017-04-16 20:33] LABS: CKMB/CK RATIO 3.1 (0-3.0)
[2017-04-16] MEDS: ESCITALOPRAM OXALATE 10 MG TAB PO SCH (20:49)
[2017-04-16] MEDS: DICYCLOMINE HCL 20 MG TAB PO SCH (20:49)
[2017-04-16] MEDS: METOPROLOL SUCC 50MG EXT REL TAB PO SCH (20:50)
[2017-04-16] MEDS: APIXABAN 2.5 MG TAB PO SCH (20:50)
[2017-04-16] MEDS ORDERED: APIXABAN 2.5 MG TAB PO SCH (21:00)
[2017-04-16 23:57] VITALS: BP 119/82; PULSE 65; TEMP 36.7; O2SAT 94
[2017-04-17] VITALS (9 sets, daily range): BP systolic 124–203; BP diastolic 83–135; PULSE 64–111; TEMP 36.4–36.7; O2SAT 91–96
[2017-04-17 04:25] LABS: HEMATOCRIT 35.4 % (42-52); MEAN CELL VOLUME 88.9 fL (80-100); MEAN CORPUSCULAR HEMOGLOBIN 30.7 pg (25-34); MEAN CORPUSCULAR HGB CONC 34.5 g/dl (32-36); MEAN PLATELET VOLUME 9.1 fL (7.4-10.4); PLATELET COUNT 201 K/uL (130-400); RED BLOOD COUNT 3.98 M/uL (4.7-6.1); WHITE BLOOD COUNT 4.63 K/uL (4.8-10.8)
[2017-04-17 04:41] LABS: BLOOD UREA NITROGEN 12 mg/dl (7-18); BUN/CREATININE RATIO 13.3 (10-20); CALCIUM 8.7 mg/dl (8.5-10.1); CARBON DIOXIDE 29 mmol/L (21-32); CHLORIDE 101 mmol/L (98-107); CREATININE 0.94 mg/dl (0.60-1.40); GLUCOSE 84 mg/dl (70-99); MAGNESIUM 2.1 mg/dl (1.8-2.4); SODIUM 137 mmol/L (136-145)
[2017-04-17 04:46] LABS: CKMB/CK RATIO 4.3 (0-3.0)
[2017-04-17] MEDS: SODIUM CHLORIDE 0.9% 1000ML 1,000 ML IV SCH ×2 (05:30→14:51)
[2017-04-17] MEDS: ACETAMINOPHEN 325 MG TAB PO PRN (05:30)
[2017-04-17] MEDS ORDERED: HYDROCODONE/ACETAMINOPHEN 7.5/325MG TAB PO PRN (06:30)
[2017-04-17] MEDS: DICYCLOMINE HCL 20 MG TAB PO SCH ×2 (08:02→20:52)
[2017-04-17] MEDS: LOSARTAN POTASSIUM 50 MG TAB PO SCH (08:02)
[2017-04-17] MEDS: METOPROLOL SUCC 50MG EXT REL TAB PO SCH ×2 (08:02→20:51)
[2017-04-17] MEDS: APIXABAN 2.5 MG TAB PO SCH ×2 (08:03→20:50)
[2017-04-17] MEDS: METOPROLOL SUCC 25MG EXT REL TAB PO SCH (08:03)
[2017-04-17] MEDS: PANTOprazole SOD 40 MG TAB PO SCH (08:03)
[2017-04-17] MEDS: AMLODIPINE BESYLATE 5 MG TAB PO SCH (10:08)
--- NOTE | 2017-04-17 11:10 | Gastroenterology Progress Note ---
Progress Note Date of Service: Apr 17, 2017 Subjective Pt evaluation today including: conversation w/ patient, physical exam, chart review, lab review, review of inpatient medication list Pt tolerating solid foods well, denies any n/v, abd pain. Still having L shoulder pain. He is agreeable to DC home today if possible. Review of Systems Constitutional: No fever, No chills Respiratory: No cough, No shortness of breath Cardiac: No chest pain Abdomen: No pain, No nausea, No vomiting Musculoskeletal: + see HPI, + joint pain Medications Current Inpatient Medications Medications (Trade) Dose Ordered Sig/Jonathon Route Start Time Stop Time Status Last Admin Dose Admin Ioversol (Optiray 320) 125 ml UD PRN IV 04/16/17 12:00 04/20/17 11:59 Sodium Chloride 1,000 ml @ 80 mls/hr [id number] IV 04/16/17 13:51 05/16/17 13:50 04/17/17 05:30 80 MLS/HR Acetaminophen (Tylenol Tab) 650 mg Q4H PRN PO 04/16/17 14:00 05/16/17 13:59 04/17/17 05:30 650 MG Al Hydrox/Mg Hydrox/Simethicone (Maalox Max Susp) 15 ml Q4H PRN PO 04/16/17 14:00 05/16/17 13:59 Magnesium Hydroxide (Milk Of Magnesia Susp) 30 ml Q12H PRN PO 04/16/17 14:00 05/16/17 13:59 Ondansetron HCl (Zofran Inj) 4 mg Q6H PRN IV 04/16/17 14:00 05/16/17 13:59 Polyethylene (Miralax Powder Packet) 17 gm DAILY PRN PO 04/16/17 14:00 05/16/17 13:59 Amlodipine Besylate (Norvasc Tab) 5 mg QAM PO 04/17/17 09:00 05/17/17 08:59 04/17/17 10:08 5 MG Escitalopram Oxalate (Lexapro Tab) 10 mg HS PO 04/16/17 21:00 05/16/17 20:59 04/16/17 20:49 10 MG Losartan Potassium (coZAAR TAB) 100 mg DAILY PO 04/17/17 09:00 8/13/17 08:59 04/17/17 08:02 100 MG Metoprolol Succinate (Toprol Xl Tab) 25 mg QAM PO 04/17/17 09:00 05/17/17 08:59 04/17/17 08:03 25 MG Metoprolol Succinate (Toprol Xl Tab) 50 mg HS PO 04/16/17 21:00 05/16/17 20:59 04/16/17 20:50 50 MG Metoprolol Succinate (Toprol Xl Tab) 50 mg QAM PO 04/17/17 09:00 05/17/17 08:59 04/17/17 08:02 50 MG Pantoprazole Sodium (Protonix Tab) 40 mg DAILY PO 04/17/17 09:00 05/17/17 08:59 04/17/17 08:03 40 MG Dicyclomine HCl (Bentyl Tab) 20 mg BID PO 04/16/17 21:00 05/16/17 20:59 04/17/17 08:02 20 MG Miscellaneous (Iv Fluids Completed) 1 ea PRN PRN N/A 04/16/17 15:30 04/16/18 15:29 Apixaban (Eliquis Tab) 5 mg BID PO 04/16/17 21:00 05/16/17 20:59 04/17/17 08:03 5 MG Acetaminophen/ Hydrocodone Bitart ([place] 7.5/325 Tab) 1 tab Q6H PRN PO 04/17/17 06:30 05/01/17 06:29 04/17/17 06:31 1 TAB Diclofenac Sodium (Voltaren 1% Top Gel) 1 appln TID EXT 04/17/17 14:00 05/17/17 13:59 Objective Vital Signs Date Time Temp Pulse Resp B/P (MAP) Pulse Ox O2 Delivery O2 Flow Rate FiO2 04/17/17 07:55 36.7 64 20 144/83 (103) 95 Room Air 04/17/17 04:00 Room Air 04/17/17 03:56 36.6 64 18 124/87 (99) 95 Room Air 04/17/17 00:00 Room Air 04/16/17 23:57 36.7 65 18 119/82 (94) 94 Room Air 04/16/17 20:00 Room Air 04/16/17 19:34 36.5 68 18 118/77 (91) 96 Room Air 04/16/17 16:00 94 Room Air 10.0 04/16/17 15:20 36.4 84 18 150/95 94 Room Air 04/16/17 14:15 80 20 129/98 94 Room Air 04/16/17 12:15 86 20 164/104 100 Nebulizer 10.0 04/16/17 11:45 94 Room Air 04/16/17 11:45 94 Room Air 04/16/17 11:37 79 16 94 Room Air 04/16/17 11:23 78 Physical Exam General Appearance: WD/WN, no apparent distress Eyes: normal inspection, PERRL, EOMI Neck: supple, no JVD, trachea midline Respiratory/Chest: normal breath sounds, no respiratory distress, no accessory muscle use Cardiovascular: regular rate, rhythm, no gallop, no murmur Abdomen: normal bowel sounds, non tender, soft Extremities: normal inspection, no pedal edema, no calf tenderness Neurologic/Psych: alert, normal mood/affect, oriented x 3 Skin: normal color, no jaundice, no rash Laboratory Results Last 24 Hours Test 04/16/17 11:25 04/16/17 11:32 04/16/17 12:05 04/16/17 19:40 White Blood Count 6.44 K/uL Red Blood Count 4.51 M/uL Hemoglobin 14.0 g/dL Hematocrit 39.4 % Mean Corpuscular Volume 87.4 fL Mean Corpuscular Hemoglobin 31.0 pg Mean Corpuscular Hemoglobin Concent 35.5 g/dl Platelet Count 264 K/uL Mean Platelet Volume 9.0 fL Neutrophils (%) (Auto) 76.4 % Lymphocytes (%) (Auto) 10.1 % Monocytes (%) (Auto) 11.0 % Eosinophils (%) (Auto) 2.0 % Basophils (%) (Auto) 0.3 % Neutrophils # (Auto) 4.92 K/uL Lymphocytes # (Auto) 0.65 K/uL Monocytes # (Auto) 0.71 K/uL Eosinophils # (Auto) 0.13 K/uL Basophils # (Auto) 0.02 K/uL RDW Standard Deviation 39.6 fL RDW Coefficient of Variation 12.3 % Immature Granulocyte % (Auto) 0.2 % Immature Granulocyte # (Auto) 0.01 K/uL Sodium Level 131 mmol/L Potassium Level 4.1 mmol/L Chloride Level 96 mmol/L Carbon Dioxide Level 27 mmol/L Anion Gap 8.0 mmol/L 18.0 mmol/L Blood Urea Nitrogen 16 mg/dl Creatinine 1.20 mg/dl Est Creatinine Clear Calc Drug Dose 69.6 ml/min Estimated GFR () 75.7 Estimated GFR (Non- 65.3 BUN/Creatinine Ratio 13.6 Random Glucose 114 mg/dl Calcium Level 9.5 mg/dl Total Bilirubin 0.6 mg/dl Direct Bilirubin 0.1 mg/dl Aspartate Amino Transf (AST/SGOT) 35 U/L Alanine Aminotransferase (ALT/SGPT) 64 U/L Alkaline Phosphatase 74 U/L Total Creatine Kinase 56 U/L 42 U/L Creatine Kinase MB 2.1 ng/ml 1.3 ng/ml Creatine Kinase MB Ratio 3.8 3.1 Troponin I < 0.015 ng/ml < 0.015 ng/ml Total Protein 7.8 gm/dl Albumin 4.0 gm/dl Lipase 114 U/L Lyme Disease IgG Antibody POS Lyme Disease IgM Antibody EQUIVOCAL Bedside D-Dimer > 450 ng/mlFEU Bedside Hemoglobin 12.9 g/dl Bedside Hematocrit 38 % Bedside Sodium 131 mEq/L Bedside Potassium 4.3 mEq/L Bedside Chloride 92 mEq/L Bedside Total CO2 27 mEq/l Bedside Blood Urea Nitrogen 18 mg/dl Bedside Creatinine 1.0 mg/dl Bedside Glucose (other) 113 mg/dl Bedside Ionized Calcium (Jaquan) 1.21 mmol/l Test 04/17/17 04:02 White Blood Count 4.63 K/uL Red Blood Count 3.98 M/uL Hemoglobin 12.2 g/dL Hematocrit 35.4 % Mean Corpuscular Volume 88.9 fL Mean Corpuscular Hemoglobin 30.7 pg Mean Corpuscular Hemoglobin Concent 34.5 g/dl RDW Standard Deviation 40.9 fL RDW Coefficient of Variation 12.7 % Platelet Count 201 K/uL Mean Platelet Volume 9.1 fL Sodium Level 137 mmol/L Potassium Level 4.0 mmol/L Chloride Level 101 mmol/L Carbon Dioxide Level 29 mmol/L Anion Gap 7.0 mmol/L Blood Urea Nitrogen 12 mg/dl Creatinine 0.94 mg/dl Est Creatinine Clear Calc Drug Dose 89.6 ml/min Estimated GFR () 101.7 Estimated GFR (Non- 87.8 BUN/Creatinine Ratio 13.3 Random Glucose 84 mg/dl Calcium Level 8.7 mg/dl Magnesium Level 2.1 mg/dl Total Creatine Kinase 40 U/L Creatine Kinase MB 1.7 ng/ml Creatine Kinase MB Ratio 4.3 Troponin I < 0.015 ng/ml Assessment and Plan Impression Patient is a 61 year old male seen for abd bloating/cramping, sense of fullness after eating. Differential diagnoses include: uncontrolled GERD, gastritis, PUD , IBS, SIBO Plan - Continue home dose of PPI - Dicyclomine 20mg BID; low FODMAPs diet - OK for outpt EGD eval and colonoscopy for colon ca screening; will ask our schedulers contact him to schedule after DC'd.
--- NOTE | 2017-04-17 12:47 | Progress Note ---
Internal Med Progress Note Date of Service: Apr 17, 2017. Provider Documentation: SUBJECTIVE: The patient was seen and examined Complains of some pain in left shoulder posteriorly-worse with movement No chest pain,palpitation SOB and abdominal discomfort on exertion Wants to go home OBJECTIVE: Vital Signs-as noted below Exam: General-No distress at rest Eyes-Normal ENT-normal Neck-supple Lungs-clear with decreased breath sound at the left base Heart-Regular Abdomen-Benign,no masses Extremities-No edema Neuro-AAOx3 Lab data as noted below. ASSESSMENT & PLAN: Dyspnea on Exertion -noted L hemidiaphragm with atelectasis and bronchiectasis left base -recent negative Stress test -Serial Randell are negative for any ACS- -has had bronchoscopy and CT chest - no PE noted here; no other findings,as per patient PFTs were normal -pulmonary consulted -patient wants to go home Early Satiety -early fullness, cramping, gas, some nausea noted -US of GB -Appreciate GI input -OP EGD/Colonoscopy Paroxysmal A. Fib continue Apixaban and Metoprolol currently in NSR and rate is controlled no acute symptoms HTN blood pressure elevated in the ER will give an extra dose of amlodipine continue home medications Depression/Anxiety continue home meds DVT ppx Apixaban FULL CODE Likely discharge this afternoon Vital Signs: Date Time Temp Pulse Resp B/P (MAP) Pulse Ox O2 Delivery O2 Flow Rate FiO2 04/17/17 12:11 36.4 76 20 162/96 (118) 96 Room Air 04/17/17 07:55 36.7 64 20 144/83 (103) 95 Room Air 04/17/17 04:00 Room Air 04/17/17 03:56 36.6 64 18 124/87 (99) 95 Room Air 04/17/17 00:00 Room Air 04/16/17 23:57 36.7 65 18 119/82 (94) 94 Room Air 04/16/17 20:00 Room Air 04/16/17 19:34 36.5 68 18 118/77 (91) 96 Room Air 04/16/17 16:00 94 Room Air 10.0 04/16/17 15:20 36.4 84 18 150/95 94 Room Air 04/16/17 14:15 80 20 129/98 94 Room Air Lab Results: Results Past 24 Hours Test 04/16/17 19:40 04/17/17 04:02 Range/Units Total Creatine Kinase 42 40 39-308 U/L Creatine Kinase MB 1.3 1.7 0.5-3.6 ng/ml Creatine Kinase MB Ratio 3.1 4.3 0-3.0 Troponin I < 0.015 < 0.015 0-0.045 ng/ml White Blood Count 4.63 4.8-10.8 K/uL Red Blood Count 3.98 4.7-6.1 M/uL Hemoglobin 12.2 14.0-18.0 g/dL Hematocrit 35.4 42-52 % Mean Corpuscular Volume 88.9 80-100 fL Mean Corpuscular Hemoglobin 30.7 25-34 pg Mean Corpuscular Hemoglobin Concent 34.5 32-36 g/dl RDW Standard Deviation 40.9 36.4-46.3 fL RDW Coefficient of Variation 12.7 11.5-14.5 % Platelet Count 201 130-400 K/uL Mean Platelet Volume 9.1 7.4-10.4 fL Sodium Level 137 136-145 mmol/L Potassium Level 4.0 3.5-5.1 mmol/L Chloride Level 101 98-107 mmol/L Carbon Dioxide Level 29 21-32 mmol/L Anion Gap 7.0 3-11 mmol/L Blood Urea Nitrogen 12 7-18 mg/dl Creatinine 0.94 0.60-1.40 mg/dl Est Creatinine Clear Calc Drug Dose 89.6 ml/min Estimated GFR () 101.7 Estimated GFR (Non- 87.8 BUN/Creatinine Ratio 13.3 10-20 Random Glucose 84 70-99 mg/dl Calcium Level 8.7 8.5-10.1 mg/dl Magnesium Level 2.1 1.8-2.4 mg/dl
--- NOTE | 2017-04-17 13:25 | Pulmonary Consultation ---
History General Date of Service: Apr 17, 2017. Stated Complaint: Dyspnea On Exertion, Early Satiety HPI The patient is a 61 year old male who presents to [facility] with complaints of Dyspnea On Exertion, Early Satiety. The patient's primary care provider is Harrison Rivers M.D.. Mr. Whatley is a 61-year-old gentleman with past medical history of atrial fibrillation (on a Eliquis) and hypertension, who presents with several day history of increasing shortness of breath and increased satiety after eating. He states that this is worse with exertion. He also complains of some left posterior shoulder pain that is exacerbated with movement. He denies any fever , chills, shortness of breath at rest, cough, palpitations, dizziness, or lightheadedness. He admits to lethargy, some daytime somnolence, and increased weight gain over several years. Vital signs in the ER were stable. O2 saturation was 94% on room air. Chest x- ray also showed left hemidiaphragm with atelectasis. Chest CT was negative for pulmonary embolism and showed bronchiectasis and atelectasis at left lower lung base. He was admitted to rule out ACS as well as further evaluation for dyspnea on exertion and left elevated hemidiaphragm. At the time of my evaluation, patient states that he is feeling somewhat better and would like to be discharged. He is being followed by pulmonary as an outpatient with Dr. Sandhu for chronic dyspnea, elevated left hemidiaphragm, mediastinal adenopathy, snoring and witnessed sleep apnea. A full outpatient workup has been done. See history below. Past Medical History Past Medical History: Pulmonary history CT chest with contrast dated 01/28/2017 showed left lower lobe atelectasis with air bronchograms adjacent to chronic left diaphragm. There is no central obstructing mass in the left. There is a 5 x 7 mm pleural-based nodule in the left major fissure, most likely a lymph node. Adjacent smaller similar nodules are seen. There are several noncalcified nonspecific nodules in the left lower lobe, right upper lobe, right lower lobe. He is status post endobronchial ultrasound with biopsy on 03/19/2017 for left lower lobe infiltrate and previously seen mediastinal adenopathy. Results of the biopsy were unremarkable. Bronchial wash for Gram stain and culture, AFB as well as yeast cultures showed no growth. Patient also underwent a 6 minute walk test done on 03/26/2017 with a baseline heart rate of 83, O2 sat 96% at 6 minutes his heart rate was 86 with an O2 sat of 93% he was able to walk a total of 960 feet. PFTs done on 04/03/2017 showed spirometry with moderate restrictive disease with a FVC of 56%. There was no bronchodilator dilator response. Lung Y showed mildly decreased lung volumes. Diffusion was moderately decreased diffusion capacity, suggestive of mild to moderately significant ventilatory disease. Patient has had a full cardiac workup including EKG which showed normal sinus rhythm. He had a stress echo done on 02/27/2017 that was negative for inducible ischemia at 75% of the maximal age predicted heart rate. There was an attenuated heart rate response to exercise likely related to medication. His exercise capacity was low average. For his shortness of breath on exertion was recently giving an course of doxycycline for March 27, thats Medrol 4 mg 21 days, Qvar 40 g/ACT inhalation aerosol, 2 puffs twice daily twice a day, and Xopenex HFA 45 g/ACT inhalation aerosol 2 puffs every 4 hours as needed. Other medical history Atrial fibrillation, hypertension, anxiety and tobacco use disorder Social History Hx Tobacco Use In Past Year?: No (OCCASIONAL CIGAR, QUIT ABOUT A YEAR AGO) Smoking Status: Former Smoker Marital status: Occupational Status: employed Allergies Coded Allergies: No Known Allergies (Unverified , 04/16/17) Current Medications Reported Home Medications Medications Dose Route/Sig Max Daily Dose Days Date Category Prilosec (Omeprazole) 20 Mg Cap 20 Mg PO DAILY 04/16/17 Reported Tylenol (Acetaminophen) 500 Mg Tab 1,000 Mg PO Q4H PRN 02/24/17 Reported Metoprolol Succinate ER (Metoprolol Succinate) 50 Mg Tabcr 50 Mg PO HS 02/24/17 Reported Metoprolol Succinate ER (Metoprolol Succinate) 50 Mg Tabcr 50 Mg PO QAM 02/24/17 Reported Metoprolol Succinate ER (Metoprolol Succinate) 25 Mg Tabcr 25 Mg PO QAM 02/24/17 Reported Levalbuterol Tartrate Hfa (Levalbuterol Tartrate) 45 Mcg/Act Aer 1 Puff INH QID PRN 02/24/17 Reported Cozaar (Losartan Potassium) 100 Mg Tab 100 Mg PO NOON 02/24/17 Reported Hctz (Hydrochlorothiazide) 25 Mg Tab 25 Mg PO QAM 02/24/17 Reported Norvasc (Amlodipine Besylate) 5 Mg Tab 5 Mg PO QAM 02/24/17 Reported Lexapro (Escitalopram Oxalate) 10 Mg Tab 10 Mg PO HS 02/24/17 Reported Eliquis (Apixaban) 5 Mg Tab 5 Mg PO BID 02/24/17 Reported Physical Physical Exam Vital Signs: Date Time Temp Pulse Resp B/P (MAP) Pulse Ox O2 Delivery O2 Flow Rate FiO2 04/17/17 12:11 36.4 76 20 162/96 (118) 96 Room Air 04/17/17 07:55 36.7 64 20 144/83 (103) 95 Room Air 04/17/17 04:00 Room Air 04/17/17 03:56 36.6 64 18 124/87 (99) 95 Room Air 04/17/17 00:00 Room Air 04/16/17 23:57 36.7 65 18 119/82 (94) 94 Room Air 04/16/17 20:00 Room Air 04/16/17 19:34 36.5 68 18 118/77 (91) 96 Room Air 04/16/17 16:00 94 Room Air 10.0 04/16/17 15:20 36.4 84 18 150/95 94 Room Air 04/16/17 14:15 80 20 129/98 94 Room Air General Appearance: WELL-APPEARING, NO APPARENT DISTRESS Head: NORMOCEPHALIC, ATRAUMATIC Eyes: PERRLA, NO DISCHARGE, EOMI, SCLERAE NORMAL, CONJUNCTIVAE NORMAL ENT: NORMAL MOUTH EXAM, NORMAL THROAT EXAM Neck: NORMAL RANGE OF MOTION, NO TENDERNESS, TRACHEA MIDLINE, SUPPLE, NO LYMPHADENOPATHY Respiratory: BREATH SOUNDS NORMAL, CLEAR TO AUSCULTATION, NO RESPIRATORY DISTRESS, NO TENDERNESS, wheezing (thoughout) Cardiovasular: NORMAL S1S2, NO M/G/R, irregular rate, other (tachycardic) Abdomen: NON TENDER, NORMAL BOWEL SOUNDS Upper Extremities: NO EDEMA Neuro: ALERT, ORIENTED x 3, NORMAL MOTOR EXAM, NORMAL SENSATION Psychiatric: NORMAL AFFECT, NO SUICIDAL IDEATION Diagnostics Labs Results Past 24 Hours Test 04/16/17 19:40 04/17/17 04:02 Range/Units Total Creatine Kinase 42 40 39-308 U/L Creatine Kinase MB 1.3 1.7 0.5-3.6 ng/ml Creatine Kinase MB Ratio 3.1 4.3 0-3.0 Troponin I < 0.015 < 0.015 0-0.045 ng/ml White Blood Count 4.63 4.8-10.8 K/uL Red Blood Count 3.98 4.7-6.1 M/uL Hemoglobin 12.2 14.0-18.0 g/dL Hematocrit 35.4 42-52 % Mean Corpuscular Volume 88.9 80-100 fL Mean Corpuscular Hemoglobin 30.7 25-34 pg Mean Corpuscular Hemoglobin Concent 34.5 32-36 g/dl RDW Standard Deviation 40.9 36.4-46.3 fL RDW Coefficient of Variation 12.7 11.5-14.5 % Platelet Count 201 130-400 K/uL Mean Platelet Volume 9.1 7.4-10.4 fL Sodium Level 137 136-145 mmol/L Potassium Level 4.0 3.5-5.1 mmol/L Chloride Level 101 98-107 mmol/L Carbon Dioxide Level 29 21-32 mmol/L Anion Gap 7.0 3-11 mmol/L Blood Urea Nitrogen 12 7-18 mg/dl Creatinine 0.94 0.60-1.40 mg/dl Est Creatinine Clear Calc Drug Dose 89.6 ml/min Estimated GFR () 101.7 Estimated GFR (Non- 87.8 BUN/Creatinine Ratio 13.3 10-20 Random Glucose 84 70-99 mg/dl Calcium Level 8.7 8.5-10.1 mg/dl Magnesium Level 2.1 1.8-2.4 mg/dl Diagnostic Radiology Chest x-ray 04/16/2017 IMPRESSION: 1. Chronic change left base including left basilar bronchiectasis. 2. Chronic elevation left hemidiaphragm. 3. Slight interstitial prominence right hemithorax. CT chest 04/16/2017 FINDINGS: Thoracic aorta is normal in course and caliber. There is moderate mediastinal and hilar adenopathy. This is unchanged from the prior exam. Nodes in the azygos esophageal recess measure up to 10 mm. Periaortic and aortopulmonary window nodes measure to 7 mm. Bilateral hilar nodes are present also which appear stable compared to the prior exam. Subcarinal adenopathy is also stable. There is a 5 mm nodular density right upper lung transaxial image 109. There are findings of bronchiectatic changes combined with atelectatic change left and to a lesser extent right base with chronic elevation left hemidiaphragm. This is stable. Pulmonary arterial vasculature enhances uniformly. Study is considered negative for pulmonary embolus Impression Assessment and Plan Dyspnea on exertion Elevated left hemidiaphragm Bronchiectasis Atelectasis Anxiety disorder/ Panic attack Patient shortness of breath appears to be multifactorial in nature. He does have an elevated left hemidiaphragm which may be a moderate restrictive pattern that is being seen on his outpatient pulmonary function tests. His bronchoscopy / EBUS and lymph node biopsy was negative for bacterial and fungal growth as well as malignancy. Stress test was also negative for ischemia. He does have some limitation secondary to deconditioning. I agree with continuation of home meds of Xopenex and Qvar. He should have Xopenex 4-6h prn. I recommend starting exercise routine increase his exercise tolerance. In terms of the bronchiectasis and atelectasis, I encourage a flutter valve. He is already received a course of doxycycline and Medrol. I do not think further antibiotics or steroids are warranted at this time. He should continue outpatient follow-up with Dr. Vela in regards to polysomnography to rule out sleep apnea. I agree with full gastrointestinal workup as this is contributing to a lot of his symptoms. He appears to be very anxious and needs reassurance. I appreciate the consult. Please contact me if you've any further questions or concerns.
[2017-04-17] MEDS: DICLOFENAC SOD 1% GEL 100 GM TUBE EXT SCH ×2 (13:50→20:52)
[2017-04-17] MEDS ORDERED: ALBUTEROL 0.083% NEBU SOLN 3 ML VIAL INH STA (15:03)
[2017-04-17] MEDS ORDERED: ALBUTEROL 0.083% NEBU SOLN 3 ML VIAL INH PRN (15:15)
[2017-04-17] MEDS ORDERED: NURSING VERBAL MED ORDER ONE (16:00)
--- NOTE | 2017-04-17 19:18 | DIAGNOSTIC IMAGING REPORT ---
ABDOMEN LIMITED (US) HISTORY: Pain r/o Gall stones. COMPARISON: None. FINDINGS: Pancreas: Poorly seen Liver: Unremarkable. Gallbladder: No gallbladder wall thickening. No gallstones. CBD: 3 mm Right kidney: No hydronephrosis. IMPRESSION: No significant abnormality identified within the within the right upper quadrant. Poor visibility of the pancreas due to overlying bowel content The above report was generated using voice recognition software. It may contain grammatical, syntax or spelling errors. Electronically signed by: Harrison Gifford M.D. 04/17/2017 7:17 PM Dictated Date/Time: 04/17/2017 7:16 PM
[2017-04-17] MEDS: ESCITALOPRAM OXALATE 10 MG TAB PO SCH (20:51)
[2017-04-18] VITALS (7 sets, daily range): BP systolic 132–174; BP diastolic 73–105; PULSE 68–83; TEMP 36.4–36.7; O2SAT 92–96
[2017-04-18] MEDS: DICLOFENAC SOD 1% GEL 100 GM TUBE EXT SCH ×3 (07:37→12:25)
[2017-04-18] MEDS: DICYCLOMINE HCL 20 MG TAB PO SCH (07:38)
[2017-04-18] MEDS: AMLODIPINE BESYLATE 5 MG TAB PO SCH (07:38)
[2017-04-18] MEDS: LOSARTAN POTASSIUM 50 MG TAB PO SCH (07:39)
[2017-04-18] MEDS: APIXABAN 2.5 MG TAB PO SCH (07:39)
[2017-04-18] MEDS: METOPROLOL SUCC 50MG EXT REL TAB PO SCH (07:39)
[2017-04-18] MEDS: PANTOprazole SOD 40 MG TAB PO SCH (07:40)
[2017-04-18] MEDS: METOPROLOL SUCC 25MG EXT REL TAB PO SCH (07:40)
--- NOTE | 2017-04-18 12:16 | Progress Note ---
Internal Med Progress Note Date of Service: Apr 18, 2017. Provider Documentation: SUBJECTIVE: The patient was seen and examined Complains of some pain in left shoulder posteriorly-worse with movement No chest pain,palpitation Very high BP yesterday with Anxiety Anxious this AM as well Wants to go home OBJECTIVE: Vital Signs-as noted below Exam: General-Minimal Distress at rest Anxious Eyes-Normal ENT-normal Neck-supple Lungs-clear with decreased breath sound at the left base Heart-Regular Abdomen-Benign,no masses Extremities-No edema Neuro-AAOx3 Lab data as noted below. ASSESSMENT & PLAN: Dyspnea on Exertion -noted L hemidiaphragm with atelectasis and bronchiectasis left base -recent negative Stress test -Serial Randell are negative for any ACS- -has had bronchoscopy and CT chest - no PE noted here; no other findings,as per patient PFTs were normal -pulmonary consulted-appreciate input -anxious top go home today -mentions that BP will be down when anxiety is better High BP Aware Likely due to anxiety Monitors BP at home -Runs around 120-120s Wants to go home even BP is high Early Satiety -early fullness, cramping, gas, some nausea noted -US of GB -Appreciate GI input -OP EGD/Colonoscopy and OP GI Evaluation Paroxysmal A. Fib continue Apixaban and Metoprolol currently in NSR and rate is controlled no acute symptoms HTN blood pressure elevated in the ER will give an extra dose of amlodipine continue home medications Depression/Anxiety continue home meds DVT ppx Apixaban FULL CODE Likely discharge this afternoon Vital Signs: Date Time Temp Pulse Resp B/P (MAP) Pulse Ox O2 Delivery O2 Flow Rate FiO2 04/18/17 12:00 Room Air 04/18/17 11:23 36.6 83 20 160/98 (118) 95 Room Air 04/18/17 09:19 36.7 75 20 96 Room Air 04/18/17 08:00 Room Air 04/18/17 07:41 75 174/105 (128) 04/18/17 07:15 36.7 80 20 96 Room Air 04/18/17 04:00 93 Room Air 04/18/17 03:54 36.6 68 20 134/73 (93) 93 Room Air 04/18/17 00:03 36.4 70 20 132/87 (102) 92 Room Air 04/17/17 23:59 92 Room Air 04/17/17 20:30 Room Air 04/17/17 19:33 36.7 77 20 167/101 (123) 92 2.0 175/110 (131) 04/17/17 16:00 Nasal Cannula 2.0 04/17/17 15:42 87 20 153/98 (116) 91 Nasal Cannula 2.0 04/17/17 15:32 78 16 94 Nasal Cannula 2.0 04/17/17 15:04 86 22 189/108 (135) 95 Nasal Cannula 2.0 04/17/17 15:01 111 26 203/135 (157) 91 Room Air 04/17/17 12:11 36.4 76 20 162/96 (118) 96 Room Air
[2017-04-18] MEDS ORDERED: BNT20 PO (12:18)
--- NOTE | 2017-04-18 12:19 | Discharge Instructions ---
Discharge Instructions Date of Service Apr 18, 2017. Admission Reason for Admission: Dyspnea On Exertion, Early Satiety Discharge Discharge Diagnosis / Problem: Exertional SOB,Early Satiety with abdominal discomfort Discharge Goals Goal(s): Prevent Disease Progression Activity Recommendations Activity Limitations: resume your previous activity . Instructions / Follow-Up Instructions / Follow-Up Your Doctors office will call with appointments Current Hospital Diet Patient's current hospital diet: Regular Diet Discharge Diet Recommended Diet: Regular Diet Pending Studies Studies pending at discharge: no Medical Emergencies . Who to Call and When: Medical Emergencies: If at any time you feel your situation is an emergency, please call 911 immediately. . Non-Emergent Contact Non-Emergency issues call your: Primary Care Provider . Past History Medical & Surgical History: (1) Dyspnea on exertion (2) Early satiety (3) Vasovagal episode (4) SOB (shortness of breath) on exertion . "Provider Documentation" section prepared by Indy Sanderson. . VTE Core Measure Inpt VTE Proph given/why not?: Other Anticoagulation
--- NOTE | 2017-04-18 12:52 | Pulmonology Progress Note ---
Pulmonary Progress Note Date of Service Apr 18, 2017. Attending Dr. Peralta Subjective Patient seen and examined this morning. He is out of bed to chair. States he is feeling tremendously better and ready to go home. He denies any wheezing, shortness of breath or chest pain. Objective On examination, Vital signs reviewed and within normal limits He is afebrile, pulse 83, blood pressure 160/98 saturating 95% on room air. General Appearance: WELL-APPEARING, NO APPARENT DISTRESS Head: NORMOCEPHALIC, ATRAUMATIC Eyes: PERRLA, NO DISCHARGE, EOMI, SCLERAE NORMAL, CONJUNCTIVAE NORMAL ENT: NORMAL MOUTH EXAM, NORMAL THROAT EXAM Neck: NORMAL RANGE OF MOTION, NO TENDERNESS, TRACHEA MIDLINE, SUPPLE, NO LYMPHADENOPATHY Respiratory: BREATH SOUNDS NORMAL, CLEAR TO AUSCULTATION, NO RESPIRATORY DISTRESS, NO TENDERNESS, Cardiovasular: NORMAL S1S2, NO M/G/R, irregular rate, Abdomen: NON TENDER, NORMAL BOWEL SOUNDS Upper Extremities: NO EDEMA Neuro: ALERT, ORIENTED x 3, NORMAL MOTOR EXAM, NORMAL SENSATION Psychiatric: NORMAL AFFECT, NO SUICIDAL IDEATION Laboratory data reviewed and is within normal limits. Lyme disease workup is pending per primary team. New imaging data significant for ultrasound of the abdomen which was done on which is normal. Assessment & Plan Dyspnea on exertion Elevated left hemidiaphragm Bronchiectasis Atelectasis Anxiety disorder/ Panic attack Right upper lobe nodule The patient is markedly improved. I feel that the majority of his symptoms are caused from anxiety. He will follow up with pulmonary as an outpatient for further workup for sleep apnea. I recommend that he continue with his home bronchodilators. Patient has a right upper lobe subcentimeter nodule that is about 5 mm. He has history of smoking so recommend this be followed up with repeat imaging in about a year. I appreciate the consult and will sign off. Data Medications: Current Inpatient Medications Medications (Trade) Dose Ordered Sig/Jonathon Route Start Time Stop Time Status Last Admin Dose Admin Ioversol (Optiray 320) 125 ml UD PRN IV 04/16/17 12:00 04/20/17 11:59 Acetaminophen (Tylenol Tab) 650 mg Q4H PRN PO 04/16/17 14:00 05/16/17 13:59 04/17/17 05:30 650 MG Al Hydrox/Mg Hydrox/Simethicone (Maalox Max Susp) 15 ml Q4H PRN PO 04/16/17 14:00 05/16/17 13:59 Magnesium Hydroxide (Milk Of Magnesia Susp) 30 ml Q12H PRN PO 04/16/17 14:00 05/16/17 13:59 Ondansetron HCl (Zofran Inj) 4 mg Q6H PRN IV 04/16/17 14:00 05/16/17 13:59 Polyethylene (Miralax Powder Packet) 17 gm DAILY PRN PO 04/16/17 14:00 05/16/17 13:59 Amlodipine Besylate (Norvasc Tab) 5 mg QAM PO 04/17/17 09:00 05/17/17 08:59 04/18/17 07:38 5 MG Escitalopram Oxalate (Lexapro Tab) 10 mg HS PO 04/16/17 21:00 05/16/17 20:59 04/17/17 20:51 10 MG Losartan Potassium (coZAAR TAB) 100 mg DAILY PO 04/17/17 09:00 05/17/17 08:59 04/18/17 07:39 100 MG Metoprolol Succinate (Toprol Xl Tab) 25 mg QAM PO 04/17/17 09:00 05/17/17 08:59 04/18/17 07:40 25 MG Metoprolol Succinate (Toprol Xl Tab) 50 mg HS PO 04/16/17 21:00 05/16/17 20:59 04/17/17 20:51 50 MG Metoprolol Succinate (Toprol Xl Tab) 50 mg QAM PO 04/17/17 09:00 05/17/17 08:59 04/18/17 07:39 50 MG Pantoprazole Sodium (Protonix Tab) 40 mg DAILY PO 04/17/17 09:00 05/17/17 08:59 04/18/17 07:40 40 MG Dicyclomine HCl (Bentyl Tab) 20 mg BID PO 04/16/17 21:00 05/16/17 20:59 04/18/17 07:38 20 MG Miscellaneous (Iv Fluids Completed) 1 ea PRN PRN N/A 04/16/17 15:30 04/16/18 15:29 Apixaban (Eliquis Tab) 5 mg BID PO 04/16/17 21:00 05/16/17 20:59 04/18/17 07:39 5 MG Acetaminophen/ Hydrocodone Bitart ([place] 7.5/325 Tab) 1 tab Q6H PRN PO 04/17/17 06:30 05/01/17 06:29 04/17/17 06:31 1 TAB Diclofenac Sodium (Voltaren 1% Top Gel) 1 appln TID EXT 04/17/17 14:00 05/17/17 13:59 04/17/17 20:52 1 APPLN Albuterol Sulfate (Ventolin 0.083% 2.5MG/3ML Neb) 2.5 mg Q6R PRN INH 04/17/17 15:15 05/17/17 15:14 Vital Signs: Date Time Temp Pulse Resp B/P (MAP) Pulse Ox O2 Delivery O2 Flow Rate FiO2 04/18/17 12:00 Room Air 04/18/17 11:23 36.6 83 20 160/98 (118) 95 Room Air 04/18/17 09:19 36.7 75 20 96 Room Air 04/18/17 08:00 Room Air 04/18/17 07:41 75 174/105 (128) 04/18/17 07:15 36.7 80 20 96 Room Air 04/18/17 04:00 93 Room Air 04/18/17 03:54 36.6 68 20 134/73 (93) 93 Room Air 04/18/17 00:03 36.4 70 20 132/87 (102) 92 Room Air 04/17/17 23:59 92 Room Air 04/17/17 20:30 Room Air 04/17/17 19:33 36.7 77 20 167/101 (123) 92 2.0 175/110 (131) 04/17/17 16:00 Nasal Cannula 2.0 04/17/17 15:42 87 20 153/98 (116) 91 Nasal Cannula 2.0 04/17/17 15:32 78 16 94 Nasal Cannula 2.0 04/17/17 15:04 86 22 189/108 (135) 95 Nasal Cannula 2.0 04/17/17 15:01 111 26 203/135 (157) 91 Room Air
--- NOTE | 2017-04-19 08:07 | Discharge Summary ---
Discharge Summary Date of Service Apr 19, 2017. Discharge Summary Admission Date: Apr 17, 2017 at 15:38 Discharge Date: Apr 18, 2017 Discharge Disposition: Home Principal Diagnosis: Exertional SOB,Early Satiety with abdominal discomfort Secondary Diagnoses/Problems: Please see H&P and Hospital progress note Consultations: Pulmonary and GI Medication Reconciliation New Medications: Dicyclomine HCl (Dicyclomine HCl) 20 Mg Tab 20 MG PO BID for 30 Days, #60 TAB Continued Medications: Acetaminophen (Tylenol) 500 Mg Tab 1000 MG PO Q4H PRN for Pain, TAB Amlodipine (Norvasc) 5 Mg Tab 5 MG PO QAM, TAB Apixaban (Eliquis) 5 Mg Tab 5 MG PO BID Escitalopram (Lexapro) 10 Mg Tab 10 MG PO HS, TAB Hydrochlorothiazide (Hctz) 25 Mg Tab 25 MG PO QAM, TAB Levalbuterol Tartrate (Levalbuterol Tartrate Hfa) 45 Mcg/Act Aer 1 PUFF INH QID PRN for SHORTNESS OF BREATH Losartan Potassium (Cozaar) 100 Mg Tab 100 MG PO NOON, TAB Metoprolol Succinate (Metoprolol Succinate ER) 25 Mg Tabcr 25 MG PO QAM Metoprolol Succinate (Metoprolol Succinate ER) 50 Mg Tabcr 50 MG PO QAM Metoprolol Succinate (Metoprolol Succinate ER) 50 Mg Tabcr 50 MG PO HS Omeprazole (Prilosec) 20 Mg Cap 20 MG PO DAILY, CAP Admission Information HPI (per Admitting provider): This is a 61 year old male with a PMH of paroxysmal atrial fibrillation, HTN, depression, elevated hemidiaphragm presents with a chronic dyspnea on exertion and a new onset L arm/shoulder pain. Patient states that he has been dealing with a long history of dyspnea - has seen pulmonology and they have noted that he has a L sided hemidiaphragm, unknown cause. Has had PFTs, bronchoscopy amongst other testing - and so far no significant findings. Has seen cardiology recently and had a stress test about 6-8 weeks prior and was negative. Denies chest pain/pressure. States his other complaint is early satiety and abdominal cramping, excessive gas, etc. Was told by PCP that they would consider an EGD as an outpatient. Was asking if this could be done as an inpatient instead. Otherwise, in no acute distress. Social History Smoking Status: Former Smoker Marital Status: Occupational Status: employed Allergies Coded Allergies: No Known Allergies (Unverified , 04/16/17) Home Medications Scheduled Amlodipine (Norvasc), 5 MG PO QAM Apixaban (Eliquis), 5 MG PO BID Escitalopram (Lexapro), 10 MG PO HS Hydrochlorothiazide (Hctz), 25 MG PO QAM Losartan Potassium (Cozaar), 100 MG PO NOON Metoprolol Succinate (Metoprolol Succinate ER), 25 MG PO QAM Metoprolol Succinate (Metoprolol Succinate ER), 50 MG PO QAM Metoprolol Succinate (Metoprolol Succinate ER), 50 MG PO HS Omeprazole (Prilosec), 20 MG PO DAILY Scheduled PRN Acetaminophen (Tylenol), 1,000 MG PO Q4H PRN for Pain Levalbuterol Tartrate (Levalbuterol Tartrate Hfa), 1 PUFF INH QID PRN for SHORTNESS OF BREATH Review of Systems Constitutional: No fever, No chills, No weakness, No fatigue Eyes: No worsening of vision ENT: No hearing loss Respiratory: + dyspnea on exertion, No cough, No sputum, No wheezing, No shortness of breath, No dyspnea at rest, No hemoptysis Cardiovascular: No chest pain, No orthopnea, No edema, No palpitations Abdomen: + problem reported (cramping, early fullness), No pain, No nausea, No vomiting, No diarrhea, No constipation, No GI bleeding Musculoskeletal: + joint pain (L shoulder/L arm pain), No muscle pain Genitourinary - Male: No hematuria, No dysuria, No urinary frequency, No urinary urgency Neurologic: No weakness, No numbness/tingling, No vertigo, No balance problems Psychiatric: No depression symptoms (controlled with medications), No anxiety, No insomnia Endocrine: No fatigue Hematologic / Lymphatic: No abnormal bleeding/bruising Integumentary: No rash Allergic / Immunologic: No environmental allergies, No seasonal allergies Physical Ex - H&P Physical Exam Vital Signs Date Time Temp Pulse Resp B/P (MAP) Pulse Ox O2 Delivery O2 Flow Rate FiO2 04/16/17 15:20 36.4 84 18 150/95 94 Room Air 04/16/17 14:15 80 20 129/98 94 Room Air 04/16/17 12:15 86 20 164/104 100 Nebulizer 10.0 04/16/17 11:45 94 Room Air 04/16/17 11:45 94 Room Air 04/16/17 11:37 79 16 94 Room Air 04/16/17 11:23 78 04/16/17 10:29 36.5 88 19 177/108 94 Room Air General Appearance: no apparent distress Head: normocephalic, atraumatic Eyes: normal inspection ENT: hearing grossly normal Neck: supple Respiratory/Chest: chest non-tender, lungs clear, normal breath sounds, no respiratory distress, no accessory muscle use Cardiovascular: regular rate, rhythm, no edema, no murmur Abdomen/GI: normal bowel sounds, non tender, soft, + distended Extremities/Musculoskelatal: normal capillary refill, no pedal edema Neurologic/Psych: no motor/sensory deficits, alert, normal mood/affect Skin: normal color Lymphatic: no adenopathy Diagnostics - H&P Diagnostics Laboratory Results Results Past 24 Hours Test 04/16/17 11:05 04/16/17 11:25 04/16/17 11:32 04/16/17 12:05 Range/Units White Blood Count 6.44 4.8-10.8 K/uL Red Blood Count 4.51 4.7-6.1 M/uL Hemoglobin 14.0 14.0-18.0 g/dL Hematocrit 39.4 42-52 % Mean Corpuscular Volume 87.4 80-100 fL Mean Corpuscular Hemoglobin 31.0 25-34 pg Mean Corpuscular Hemoglobin Concent 35.5 32-36 g/dl Platelet Count 264 130-400 K/uL Mean Platelet Volume 9.0 7.4-10.4 fL Neutrophils (%) (Auto) 76.4 % Lymphocytes (%) (Auto) 10.1 % Monocytes (%) (Auto) 11.0 % Eosinophils (%) (Auto) 2.0 % Basophils (%) (Auto) 0.3 % Neutrophils # (Auto) 4.92 1.4-6.5 K/uL Lymphocytes # (Auto) 0.65 1.2-3.4 K/uL Monocytes # (Auto) 0.71 0.11-0.59 K/uL Eosinophils # (Auto) 0.13 0-0.5 K/uL Basophils # (Auto) 0.02 0-0.2 K/uL RDW Standard Deviation 39.6 36.4-46.3 fL RDW Coefficient of Variation 12.3 11.5-14.5 % Immature Granulocyte % (Auto) 0.2 % Immature Granulocyte # (Auto) 0.01 0.00-0.02 K/uL Sodium Level 131 136-145 mmol/L Potassium Level 4.1 3.5-5.1 mmol/L Chloride Level 96 98-107 mmol/L Carbon Dioxide Level 27 21-32 mmol/L Anion Gap 8.0 18.0 16-25 mmol/L Blood Urea Nitrogen 16 7-18 mg/dl Creatinine 1.20 0.60-1.40 mg/dl Est Creatinine Clear Calc Drug Dose 69.6 ml/min Estimated GFR () 75.7 Estimated GFR (Non- 65.3 BUN/Creatinine Ratio 13.6 10-20 Random Glucose 114 70-99 mg/dl Calcium Level 9.5 8.5-10.1 mg/dl Total Bilirubin 0.6 0.2-1 mg/dl Direct Bilirubin 0.1 0-0.2 mg/dl Aspartate Amino Transf (AST/SGOT) 35 15-37 U/L Alanine Aminotransferase (ALT/SGPT) 64 12-78 U/L Alkaline Phosphatase 74 45-117 U/L Total Creatine Kinase 56 39-308 U/L Creatine Kinase MB 2.1 0.5-3.6 ng/ml Creatine Kinase MB Ratio 3.8 0-3.0 Troponin I < 0.015 0-0.045 ng/ml Total Protein 7.8 6.4-8.2 gm/dl Albumin 4.0 3.4-5.0 gm/dl Lipase 114 73-393 U/L Lyme Disease IgG Antibody POS NEG Lyme Disease IgM Antibody EQUIVOCAL NEG Bedside D-Dimer > 450 0-450 ng/mlFEU Bedside Hemoglobin 12.9 14.0-18.0 g/dl Bedside Hematocrit 38 42-52 % Bedside Sodium 131 135-144 mEq/L Bedside Potassium 4.3 3.3-5.0 mEq/L Bedside Chloride 92 101-112 mEq/L Bedside Total CO2 27 24-31 mEq/l Bedside Blood Urea Nitrogen 18 7-18 mg/dl Bedside Creatinine 1.0 0.6-1.3 mg/dl Bedside Glucose (other) 113 70-99 mg/dl Bedside Ionized Calcium (Jaquan) 1.21 1.12-1.32 mmol/l Diagnostic Radiology (CHEST FOR PE) ANGIO WITH CT DOSE: 1280.23 mGy.cm HISTORY: Chest pain dyspnea TECHNIQUE: Multiaxial CT images of the chest were performed following the intravenous administration of contrast to evaluate the pulmonary arteries. Maximal intensity projection images were also obtained. COMPARISON STUDY: medical group dated 01/29/2017 FINDINGS: Thoracic aorta is normal in course and caliber. There is moderate mediastinal and hilar adenopathy. This is unchanged from the prior exam. Nodes in the azygos esophageal recess measure up to 10 mm. Periaortic and aortopulmonary window nodes measure to 7 mm. Bilateral hilar nodes are present also which appear stable compared to the prior exam. Subcarinal adenopathy is also stable. There is a 5 mm nodular density right upper lung transaxial image 109. There are findings of bronchiectatic changes combined with atelectatic change left and to a lesser extent right base with chronic elevation left hemidiaphragm. This is stable. Pulmonary arterial vasculature enhances uniformly. Study is considered negative for pulmonary embolus IMPRESSION: 1. Study is negative for pulmonary embolus. 2. Atelectatic and bronchiectatic change left base unaltered from the prior study. 3. Stable pulmonary nodularity. 4. Stable mediastinal and hilar adenopathy. EKG Atrial fibrillation with premature ventricular or aberrantly conducted complexes Nonspecific ST abnormality Impression - H&P Impression Assessment and Plan This is a 61 year old male with a PMH of paroxysmal atrial fibrillation, HTN, depression, elevated hemidiaphragm presents with a chronic dyspnea on exertion and a new onset L arm/shoulder pain. Dyspnea on Exertion noted L hemidiaphragm now complaint of L arm pain will trend cardiac enzymes recent echo and stress test - which were negative has had bronchoscopy and CT chest - no PE noted here; no other findings as per patient PFTs were normal will consult pulmonology for any further input Early Satiety early fullness, cramping, gas, some nausea noted was told by PCP that he may need EGD will consult GI as this was his main complaint today Paroxysmal A. Fib continue Apixaban and Metoprolol currently in NSR and rate is controlled HTN blood pressure elevated in the ER will give an extra dose of amlodipine continue home medications Depression/Anxiety continue home meds DVT ppx Apixaban FULL CODE Advanced Directives Existing Living Will: No Existing Power of Materials Engineering Technician: No VTE Prophylaxis VTE Risk Assessment Done? Y/N: Yes Risk Level: Moderate Physical Exam (per Admitting): General Appearance: no apparent distress Head: normocephalic, atraumatic Eyes: normal inspection ENT: hearing grossly normal Neck: supple Respiratory/Chest: chest non-tender, lungs clear, normal breath sounds, no respiratory distress, no accessory muscle use Cardiovascular: regular rate, rhythm, no edema, no murmur Abdomen/GI: normal bowel sounds, non tender, soft, + distended Extremities/Musculoskelatal: normal capillary refill, no pedal edema Neurologic/Psych: no motor/sensory deficits, alert, normal mood/affect Skin: normal color Lymphatic: no adenopathy Hospital Course Dyspnea on Exertion -noted L hemidiaphragm with atelectasis and bronchiectasis left base -recent negative Stress test -Serial Randell are negative for any ACS- -has had bronchoscopy and CT chest - no PE noted here; no other findings,as per patient PFTs were normal -pulmonary consulted-appreciate input -anxious top go home today -mentions that BP will be down when anxiety is better High BP Aware Likely due to anxiety Monitors BP at home -Runs around 120-120s Wants to go home even BP is high Early Satiety -early fullness, cramping, gas, some nausea noted -US of GB -Appreciate GI input -OP EGD/Colonoscopy and OP GI Evaluation Paroxysmal A. Fib continue Apixaban and Metoprolol currently in NSR and rate is controlled no acute symptoms HTN blood pressure elevated in the ER will give an extra dose of amlodipine continue home medications Depression/Anxiety continue home meds DVT ppx Apixaban FULL CODE Likely discharge this afternoon Total time spent on discharge = 35 minutes This includes examination of the patient, discharge planning, medication reconciliation, and communication with other providers. Discharge Instructions Date of Service Apr 18, 2017. Admission Reason for Admission: Dyspnea On Exertion, Early Satiety Discharge Discharge Diagnosis / Problem: Exertional SOB,Early Satiety with abdominal discomfort Discharge Goals Goal(s): Prevent Disease Progression Activity Recommendations Activity Limitations: resume your previous activity . Instructions / Follow-Up Instructions / Follow-Up Your Doctors office will call with appointments Current Hospital Diet Patient's current hospital diet: Regular Diet Discharge Diet Recommended Diet: Regular Diet Pending Studies Studies pending at discharge: no Medical Emergencies . Who to Call and When: Medical Emergencies: If at any time you feel your situation is an emergency, please call 911 immediately. . Non-Emergent Contact Non-Emergency issues call your: Primary Care Provider . Past History Medical & Surgical History: (1) Dyspnea on exertion (2) Early satiety (3) Vasovagal episode (4) SOB (shortness of breath) on exertion . "Provider Documentation" section prepared by Indy Sanderson. . VTE Core Measure Inpt VTE Proph given/why not?: Other Anticoagulation <Electronically signed by Indy Sanderson M.D.> Signed: 04/18/17 [id number] Signed: Additional Copies To Harrison Rivers M.D.
[2017-04-20 22:31] LABS: IGA SERUM 136 mg/dL (81-463); TIS TRANS IGA 1 U/mL (<4)
== END 2017-04-18 12:54 | disposition home or self-care (01) | DRG 204 ==
LOC: C.EDB 10:24 → C.2T 14:00 → ENRESERV 14:50 → OBSVTOIN 04-17 15:38
PROVIDERS: ADMIT Family Medicine; ATTEND Internal Medicine
DX: R06.00 Dyspnea, unspecified (principal); J98.11 Atelectasis; R68.81 Early satiety; I10 Essential (primary) hypertension; I48.0 Paroxysmal atrial fibrillation; F32.9 Major depressive disorder, single episode, unspecified; J47.9 Bronchiectasis, uncomplicated; F41.0 Panic disorder [episodic paroxysmal anxiety]; Z87.891 Personal history of nicotine dependence

== ENCOUNTER → 2017-07-14 | Outpatient (CLI) | payer OTHER ==
[~2017-07-14] MED LIST changes: +ATV/1 PO; +BNT20 PO; +METO25TA3 PO; +OMEP20CA9 PO
[2017-07-14 16:33] LABS: BASO % 0.6 %; BASO ABS # 0.04 K/uL (0-0.2); COMPLETE YES; EOS % 8.9 %; HEMATOCRIT 42.4 % (42-52); IG% 0.1 %; LYMPH % 28.6 %; LYMPH ABS # 2.06 K/uL (1.2-3.4); MEAN CELL VOLUME 86.7 fL (80-100); MEAN CORPUSCULAR HEMOGLOBIN 30.1 pg (25-34); MEAN CORPUSCULAR HGB CONC 34.7 g/dl (32-36); MEAN PLATELET VOLUME 9.5 fL (7.4-10.4); MONO % 9.8 %; PLATELET COUNT 272 K/uL (130-400); RED BLOOD COUNT 4.89 M/uL (4.7-6.1); WHITE BLOOD COUNT 7.21 K/uL (4.8-10.8)
[2017-07-14 16:44] LABS: INR 1.1 (0.9-1.1); PARTIAL THROMBOPLASTIN RATIO 1.3; PROTHROMBIN TIME (PATIENT) 11.6 SECONDS (9.0-12.0)
[2017-07-14 17:32] LABS: BLOOD UREA NITROGEN 21 mg/dl (7-18); BUN/CREATININE RATIO 21.3 (10-20); CALCIUM 9.6 mg/dl (8.5-10.1); CARBON DIOXIDE 31 mmol/L (21-32); CHLORIDE 98 mmol/L (98-107); GLUCOSE 103 mg/dl (70-99); POTASSIUM 4.2 mmol/L (3.5-5.1); SODIUM 133 mmol/L (136-145)
== END | disposition home or self-care (01) ==
LOC: C.LAB1850 15:16
PROVIDERS: ATTEND Surgery
DX: Z01.812 Encounter for preprocedural laboratory examination (principal); J98.6 Disorders of diaphragm

== ENCOUNTER 2017-07-22 05:30 | Inpatient (IN) | payer OTHER ==
[2017-07-16 09:25] VITALS: BMI 28.0
[2017-07-16 09:39] VITALS: Ht 170.2 cm; Wt 82.2 kg
[2017-07-22] VITALS (11 sets, daily range): BP systolic 105–147; BP diastolic 65–108; PULSE 76–90; TEMP 36.3–37.1; O2SAT 91–99
[~2017-07-22] VITALS: Ht 170.2 cm; Wt 82.2 kg
[~2017-07-22 05:30] MED LIST changes: -BNT20 PO; -OMEP20CA9 PO; -TPRSR25 PO; -TPRSR50 PO
[2017-07-22] MEDS ORDERED: ONDANSETRON INJ 2 MG/ML 2 ML VIAL ONE ×2 (06:30→11:19)
[2017-07-22] MEDS ORDERED: PROPOFOL IV EMULSION 10 MG/ML 20 ML VIAL IV ONE (06:30)
[2017-07-22] MEDS ORDERED: ROCURONIUM BROMIDE 10 MG/ML 5 ML VIAL IV ONE ×2 (06:30→08:33)
[2017-07-22] MEDS ORDERED: DEXAMETHASONE SOD INJ 4 MG/ML VIAL ONE (06:30)
[2017-07-22] MEDS ORDERED: MIDAZOLAM HCL 1 MG/ML 2ML VIAL ONE ×2 (06:30→06:34)
[2017-07-22] MEDS ORDERED: FENTANYL CITRATE INJ 50 MCG/1 ML 2 ML VIAL ONE ×2 (06:30→10:20)
[2017-07-22] MEDS ORDERED: LIDOCAINE HCL 2% 2 ML VIAL (20MG/ML) ONE (06:30)
[2017-07-22] MEDS ORDERED: FENTANYL CITRATE INJ 50 MCG/1 ML 2 ML VIAL IV PRN (07:15)
[2017-07-22] MEDS ORDERED: ALBUT/IPRATROP 3MG/0.5MG NEB 3 ML VIAL INH PRN ×2 (07:15→12:00)
[2017-07-22] MEDS ORDERED: EpHEDrine SULFATE INJ 50 MG/ML AMP IV PRN (07:15)
[2017-07-22] MEDS ORDERED: ATROPINE SULFATE 0.1 MG/ML 5ML SYR IV PRN (07:15)
[2017-07-22] MEDS ORDERED: ONDANSETRON INJ 2 MG/ML 2 ML VIAL IV PRN ×2 (07:15→11:30)
[2017-07-22] MEDS ORDERED: LABETALOL HCL IV 5 MG/ML 20ML IV PRN (07:15)
[2017-07-22] MEDS ORDERED: HYDROmorphone INJ 1 MG/ML SYR IV PRN (07:15)
[2017-07-22] MEDS ORDERED: SODIUM CHLORIDE 0.9% PF 50 ML VIAL ONE ×2 (07:18→09:20)
[2017-07-22] MEDS ORDERED: BUPIVACAINE LIPOSOME 1/3% 266 MG/20 ML VIAL INFIL ONE ×2 (07:18→09:20)
[2017-07-22] MEDS ORDERED: ALBUMIN HUMAN 5% 12.5 GM/250 ML VIAL IV ONE (07:52)
[2017-07-22] MEDS ORDERED: CEFAZOLIN SOD 1 GM VIAL ONE (09:02)
[2017-07-22] MEDS ORDERED: EpHEDrine SULFATE 50MG/5ML SYR ONE (09:43)
[2017-07-22] MEDS ORDERED: NEOSTIGMINE METHYLSULFATE 5 MG/5 ML SYR ONE ×2 (09:43→11:02)
[2017-07-22] MEDS ORDERED: PHENYLEPHRINE HCL INJ 10 MG/ML VIAL ONE (09:43)
[2017-07-22] MEDS ORDERED: GLYCOPYRROLATE INJ 0.2 MG/ML VIAL ONE (11:02)
[2017-07-22] MEDS ORDERED: LORAZEPAM 1 MG TAB PO PRN (11:30)
[2017-07-22] MEDS ORDERED: MoRPHine SULFATE 2 MG/ML CARP IV PRN (11:30)
--- NOTE | 2017-07-22 12:30 | Anesthesiology Progress Note ---
Anesthesia Post Op Note Date & Time Jul 22, 2017 at 12:30 Vital Signs Pain Intensity: 0 Vital Signs Past 12 Hours Date Time Temp Pulse Resp B/P (MAP) Pulse Ox O2 Delivery O2 Flow Rate FiO2 07/22/17 12:21 117/71 07/22/17 12:20 73 17 95 07/22/17 12:20 76 17 07/22/17 12:16 95/67 07/22/17 12:15 67 17 92 07/22/17 12:15 69 17 07/22/17 12:11 99/82 07/22/17 12:10 77 17 07/22/17 12:10 78 17 94 07/22/17 12:09 75 15 07/22/17 12:09 75 15 92 07/22/17 12:06 116/69 07/22/17 12:04 74 17 07/22/17 12:04 70 17 98 07/22/17 12:01 127/74 07/22/17 11:59 74 17 92 07/22/17 11:59 80 17 07/22/17 11:56 112/82 07/22/17 11:54 18 07/22/17 11:54 72 18 07/22/17 11:51 114/81 07/22/17 11:50 104/86 07/22/17 11:49 16 07/22/17 11:49 81 16 07/22/17 11:49 36.0 78 78 104/86 95 Oxymask 10 07/22/17 07:23 76 18 99 Mask 6.0 07/22/17 06:11 37.1 83 20 147/108 96 Room Air Notes Mental Status: alert / awake / arousable, participated in evaluation Pt Amnestic to Procedure: Yes Nausea / Vomiting: adequately controlled Pain: adequately controlled Airway Patency, RR, SpO2: stable & adequate BP & HR: stable & adequate Hydration State: stable & adequate Anesthetic Complications: no major complications apparent Patient to be kept on oxygen with continuous pulse oximetry on the floor. He was awake and conversant in PACU without complaints of SOB or pain. All questions answered. Ok for transfer out of PACU.
--- NOTE | 2017-07-22 12:38 | DIAGNOSTIC IMAGING REPORT ---
CHEST ONE VIEW PORTABLE HISTORY: 61 years-old Male diaphragm plication COMPARISON: Chest radiograph and CTA chest 04/16/2017 TECHNIQUE: Portable upright AP view the chest FINDINGS: Lungs are hypoinflated with bronchovascular crowding and hazy subsegmental left greater than right bibasilar opacities suggesting atelectasis. There is blunting of the left costophrenic angle, suspicious for small effusion. Chest tube at the level of the left midlung is noted with minimal subcutaneous emphysema along the lateral left chest wall. No definite postprocedural pneumothorax. Cardiac silhouette is mildly enlarged. Resolution of the previously described left hemidiaphragmatic elevation status post surgery. Bones are grossly intact. IMPRESSION: 1. Resolution of the previously described left hemidiaphragmatic elevation status post diaphragmatic plication. 2. Left-sided chest tube terminates at the level of the left midlung. 3. Hypoinflation with left greater than right subsegmental opacities suggesting atelectasis. Probable small left effusion. 4. No pneumothorax. The above report was generated using voice recognition software. It may contain grammatical, syntax or spelling errors. Electronically signed by: Darion Rivera M.D. 07/22/2017 12:36 PM Dictated Date/Time: 07/22/2017 12:32 PM
--- NOTE | 2017-07-22 13:27 | OPERATIVE REPORT ---
DATE OF OPERATION: 07/22/2017 PREOPERATIVE DIAGNOSES: 1. Mediastinal adenopathy. 2. Paralysis left hemidiaphragm. POSTOPERATIVE DIAGNOSES: Same. PROCEDURE: Video mediastinoscopy with biopsy. SURGEON: Lit Garg MD NAILING MACHINE FEEDER: ANGELINA Sharp ANESTHESIA: General anesthesia endotracheal intubation. INDICATION FOR PROCEDURE AND FINDINGS: Mr. Whatley is a 61-year-old male who is a lifetime nonsmoker who has become markedly short of breath and he had a major impact on his lifestyle. He cannot complete a sentence without being out of breath. His diaphragm has been paralyzed for at least a year. He also had mediastinal adenopathy. Dr. Mariano Sandhu performed an endobronchial ultrasound a few months ago and there was no evidence of malignancy or granulomatous disease. I saw the patient in the office and he and his were both quite concerned with his dyspnea. He is as stated lifetime nonsmoker. I had a long talk to him and we elected to proceed with a robotic repair of the left hemidiaphragm, but also do a video mediastinoscopy with biopsy of these rather large nodes. On 07/22/2017, we took the patient to the operating room and did an uncomplicated video mediastinoscopy. I biopsied these nodes in their entirety, level 2 on the right, level 4 on the right, level 10 on the right and level 7. We sent specimens for culture, but also had plenty for histology. It should also be noted that a frozen section showed no evidence of malignancy or granulomatous disease. The nodes were very hard. He tolerated it well. DESCRIPTION OF PROCEDURE: The patient was brought to the operating room and laid in supine position. General anesthesia induced and endotracheal intubation was performed. After the appropriate timeout had been called and prophylactic antibiotics were given, incision was made one fingerbreadth above the sternal notch. Sharp and blunt dissection used to go down between the strap muscles down the pretracheal plane which was developed bluntly. The video mediastinoscope was placed. Using a rigid suction catheter, I was able to dissect out down to the right level 2 area which had a fairly significant node which was a bit surprising given the CT findings. I removed this in its entirety. Then I went down to level 4 lymph node which was rather large and just above the azygos vein on the right. I then biopsied this. I did use cautery to control bleeding. Going down below the azygos, I then dissected out a rather large level 10 node and this came out easily and I also cauterized this. I finally went down to the subcarinal area and there was a large mat of lymph nodes and I removed many of these and used cautery to control bleeding. I did not biopsy anything on the left side. I slowly withdrew the video mediastinoscope and there was no significant bleeding. Strap muscles were closed with 3-0 Vicryl in a running continuous fashion and 4-0 Monocryl was used in a running subcuticular fashion to approximate the wound edges. Antimicrobials dressings were applied. He tolerated it well. He was then readied for his robotic left thoracoscopic diaphragm plication. I attest to the content of the Intraoperative Record and any orders documented therein. Any exception s are noted below.
--- NOTE | 2017-07-22 13:35 | OPERATIVE REPORT ---
DATE OF OPERATION: 07/22/2017 PREOPERATIVE DIAGNOSES: 1. Paralysis, left hemidiaphragm. 2. Marked dyspnea on exertion. POSTOPERATIVE DIAGNOSIS: Same. PROCEDURE: Robot-assisted left thoracoscopic plication of left hemidiaphragm. SURGEON: Dr. Garg. VOCATIONAL EVALUATOR: Dr. John Koenig. ANESTHESIA: General anesthesia with endotracheal intubation. SPECIFICS OF PROCEDURE: The patient is markedly symptomatic with the left hemidiaphragm paralysis, the cause is unknown. He has been paralyzed for over a year. On 07/22/2017 patient brought to the operating room and underwent uncomplicated video mediastinoscopy. We then turned him and prepared him for his robotic surgery. We placed 4 ports. There was 1 camera port, 2 robotic arm ports and an music assistant port. We were then able to see the diaphragm very nicely and using 0 Tycron with a Dacron pledgets, we pulled this together quite easily. We left this rather taut. There was no significant blood loss. We did use Exparel for an intercostal block intrathoracically. He tolerated it well, awakened without difficulty. PROCEDURE: The patient brought to operating room and laid in supine position. General anesthesia induced and endotracheal intubation was performed with a double lumen tube. We had performed a video mediastinoscopy. We then placed the patient in a right lateral decubitus position and prepped and draped his left chest in usual fashion. After an appropriate had been called and prophylactic antibiotics were reviewed, we then made a port just posterior to the scapula. Upon going in, we used a Veress needle first and a 10 mm port and insufflated CO2 and there was very good collapse of the lung using CO2. I then placed an 8 mm port about 12-14 cm anterior to the same interspace and then another port posterior at the level of the diaphragm. These were all done under vision with the scope. I then changed the 5 mm port that I initially placed in the posterior scapula and put a 10 mm camera port. The robot was then docked and we could see the music assistant port to be placed anteriorly. We then used 0 Tycron in horizontal mattress sutures with pledgets, starting in the middle and then working my way laterally and then medially and performed this plication without difficulty. It was rather taut, but we did not feel like we had much play. We really got into no bleeding. We then used 266 mg of Exparel mixed with 60 mL total of normal saline and blocked the second to the 11th rib with an intrathoracic intercostal block under thoracoscopic guidance. A 24-Mongolian chest tube was then directed towards the apex to the music assistant's port. Held in place with heavy silk suture. 0 Vicryl was used to close the muscle layers of all the ports and 4-0 Monocryl was used in usual fashion to approximate the wound edges. He tolerated it very well and was extubated in the room without difficulty. I attest to the content of the Intraoperative Record and any orders documented therein. Any exceptions are noted below. ADI
[2017-07-22] MEDS: D5W AND 1/2NSS 1,000 ML IV SCH ×2 (14:07→21:34)
[2017-07-22] MEDS: ACETAMINOPHEN IV 1,000 MG in EMPTY BAG 0 ML IV SCH ×2 (14:30→21:25)
[2017-07-22] MEDS: KETOROLAC TROMETHAMINE 15 MG/ML VIAL IV. SCH ×2 (14:30→21:30)
[2017-07-22] MEDS: METOCLOPRAMIDE HCL INJ 5 MG/ML 2 ML VIAL IV. SCH ×2 (14:36→21:29)
[2017-07-22] MEDS ORDERED: CEFAZOLIN IV 2,000 MG in SYRINGE 0 ML IV SCH (18:00)
[2017-07-22] MEDS: CEFAZOLIN IV 2,000 MG in SYRINGE 0 ML IV SCH (20:11)
[2017-07-22] MEDS: OXYCODONE HCL IR 5 MG TAB (IMMEDIATE RELEASE) PO PRN (20:27)
[2017-07-22] MEDS ORDERED: ESCITALOPRAM OXALATE 10 MG TAB PO SCH (21:00)
[2017-07-22] MEDS ORDERED: METOPROLOL SUCC 50MG EXT REL TAB PO SCH (21:00)
[2017-07-22] MEDS: DOCUSATE SODIUM 100 MG CAP PO SCH (21:22)
[2017-07-23] VITALS (8 sets, daily range): BP systolic 113–148; BP diastolic 69–100; PULSE 77–121; TEMP 36.4–36.7; O2SAT 95–96
[2017-07-23] MEDS: CEFAZOLIN IV 2,000 MG in SYRINGE 0 ML IV SCH (02:23)
[2017-07-23] MEDS: LEValbuterol HFA 15GM INHALER INH PRN ×2 (03:57→13:22)
[2017-07-23] MEDS: ACETAMINOPHEN IV 1,000 MG in EMPTY BAG 0 ML IV SCH (05:35)
[2017-07-23] MEDS: KETOROLAC TROMETHAMINE 15 MG/ML VIAL IV. SCH ×2 (05:36→13:22)
[2017-07-23] MEDS: METOCLOPRAMIDE HCL INJ 5 MG/ML 2 ML VIAL IV. SCH (05:38)
[2017-07-23] MEDS ORDERED: ENOXAPARIN 40 MG/0.4 ML SYR SQ SCH (06:00)
[2017-07-23] MEDS: D5W AND 1/2NSS 1,000 ML IV SCH (06:24)
--- NOTE | 2017-07-23 07:09 | DIAGNOSTIC IMAGING REPORT ---
CHEST ONE VIEW PORTABLE HISTORY: Postop. diaphragm plication COMPARISON: Chest 07/22/2017. FINDINGS: Left-sided chest tube terminates in the left midlung zone. No definite pneumothorax. The heart remains enlarged. There is mild interstitial pulmonary edema. Bibasilar linear densities persist. Suspect trace bilateral pleural effusions. IMPRESSION: 1. No significant change compared to the prior study. 2. Left chest tube is unchanged in position. No pneumothorax. 3. Mild interstitial pulmonary edema, cardiomegaly, trace bilateral pleural effusions persist. Electronically signed by: Sanchez Landry M.D. 07/23/2017 7:08 AM Dictated Date/Time: 07/23/2017 7:06 AM
[2017-07-23] MEDS ORDERED: CLC100 PO (07:53)
--- NOTE | 2017-07-23 07:55 | Discharge Instructions ---
Discharge Instructions Date of Service Jul 23, 2017. Admission Reason for Admission: Left Hemidiaphragmatic Paralysis Discharge Discharge Diagnosis / Problem: Left Hemidiaphragmatic Paralysis Discharge Goals Goal(s): Decrease discomfort, Improve function Activity Recommendations Activity Limitations: as noted below Lifting Limitations: none 1. You may remove dressings in 3 days and shower thereafter. No tub baths, swimming pools, or hot tubs. 2. Do not fly until cleared to do so by Dr. Garg. 3. Do not drive if taking ultram. . Instructions / Follow-Up Instructions / Follow-Up 1. Office appointment with Dr. Garg in 1-2 weeks. Office will call with date and time of appointment. Go to hospital 1 hour before appointment to have a chest x-ray taken. Current Hospital Diet Patient's current hospital diet: Regular Diet Discharge Diet Recommended Diet: Regular Diet Procedures Procedures Performed: Video Mediastinoscopy, Robotic Left Video Assisted Thoracoscopy with Diaphragmatic Plication Pending Studies Studies pending at discharge: no Medical Emergencies . Who to Call and When: Medical Emergencies: If at any time you feel your situation is an emergency, please call 911 immediately. . Non-Emergent Contact Non-Emergency issues call your: Surgeon Call Non-Emergent contact if: you have a fever, your pain is not controlled, wound has increased drainage . "Provider Documentation" section prepared by John Koenig. . VTE Core Measure Inpt VTE Proph given/why not?: Enoxaparin (Lovenox)SQ
[2017-07-23] MEDS ORDERED: NURSING VERBAL MED ORDER ONE ×2 (08:00→10:45)
[2017-07-23] MEDS ORDERED: COUGH DROP (SUGAR FREE) LOZ 24 LOZ/1 BOX ONE (08:04)
[2017-07-23] MEDS: OXYCODONE HCL IR 5 MG TAB (IMMEDIATE RELEASE) PO PRN (08:06)
[2017-07-23] MEDS: DOCUSATE SODIUM 100 MG CAP PO SCH (08:06)
[2017-07-23] MEDS ORDERED: COUGH DROP (SUGAR FREE) LOZ 24 LOZ/1 BOX PO PRN (08:15)
[2017-07-23] MEDS ORDERED: TRAM-10 PO (08:19)
--- NOTE | 2017-07-23 08:28 | DISCHARGE SUMMARY ---
DISCHARGE DIAGNOSES: 1. Paralysis left hemidiaphragm. 2. Mediastinal lymphadenopathy. HOSPITAL COURSE: Thaddeus Whatley is a 61-year-old male who became short of breath over the last year or so and was found to have paralysis of his left hemidiaphragm. He is markedly short of breath and had trouble finishing his sentence. He also had mediastinal adenopathy. I had a long talk with the patient and his in the office. He had undergone an endobronchial ultrasound with no diagnosis. On 07/22/2017, the patient underwent uncomplicated video mediastinoscopy with biopsy of several lymph node stations. Frozen section showed reactive nodes. Gram stain was also negative for organisms. I then performed a robot-assisted left thoracoscopic hemidiaphragm plication. This went very well. His chest tubes drained very little and we removed it the following day. He was discharged home on postop day 1. His incisions were clean. He is on room air. He had no GI symptoms and was tolerating a diet. We will discharge him and I will see him back in the office in 1 week.
--- NOTE | 2017-07-23 08:44 | DIAGNOSTIC IMAGING REPORT ---
CHEST ONE VIEW PORTABLE HISTORY: chest tube removal COMPARISON: Chest 07/23/2017. FINDINGS: Left-sided chest tube has been removed. No definite pneumothorax identified. Low lung volumes and bibasilar linear densities persist. There are vaguely and mild interstitial pulmonary edema remains unchanged. Suspect trace bilateral pleural effusions. IMPRESSION: Left-sided chest tube has been removed. No definite pneumothorax. Mild interstitial pulmonary edema and trace pleural effusions persist. Electronically signed by: Sanchez Landry M.D. 07/23/2017 8:43 AM Dictated Date/Time: 07/23/2017 8:35 AM
[2017-07-23] MEDS ORDERED: LOSARTAN POTASSIUM 50 MG TAB PO SCH (09:00)
[2017-07-23] MEDS ORDERED: AMLODIPINE BESYLATE 5 MG TAB PO SCH (09:00)
[2017-07-23] MEDS ORDERED: METOPROLOL SUCC 25MG EXT REL TAB PO SCH (09:00)
[2017-07-23] MEDS ORDERED: LORAZEPAM 1 MG TAB ONE (10:45)
--- NOTE | 2017-07-23 12:45 | Anesthesiology Progress Note ---
Anesthesia Post Op Note Date & Time Jul 23, 2017 at 10:30 Vital Signs Pain Intensity: 5.0 Vital Signs Past 12 Hours Date Time Temp Pulse Resp B/P (MAP) Pulse Ox O2 Delivery O2 Flow Rate FiO2 07/23/17 11:45 95 Room Air 2.0 Nasal Cannula 07/23/17 10:57 36.4 121 143/100 (114) 95 Nasal Cannula 2.0 07/23/17 08:57 36.4 91 18 95 Room Air 07/23/17 06:12 91 95 Room Air 07/23/17 06:02 93 95 Nasal Cannula 2.0 07/23/17 04:00 36.4 91 18 148/83 (104) 96 Nasal Cannula 4.0 Notes Mental Status: participated in evaluation Pt Amnestic to Procedure: Yes Nausea / Vomiting: adequately controlled Pain: improving with treatment Airway Patency, RR, SpO2: see Notes BP & HR: stable & adequate Hydration State: stable & adequate Anesthetic Complications: no major complications apparent Pt suppose to be discharged today. Very SOB during evaluation. Dr. Garg aware and suppose to be making rounds to see patient.
[2017-07-23] MEDS ORDERED: ATV/1 PO (15:02)
== END 2017-07-23 15:15 | disposition home or self-care (01) | DRG 165 ==
LOC: C.ACU 05:30 → C.MSW 11:28 → ENRESERV 12:20
PROVIDERS: ADMIT Surgery; ATTEND Surgery
PROC: 07B74ZX Excision of Thorax Lymphatic, Percutaneous Endoscopic Approach, Diagnostic (ICD-10-PCS; principal; 2017-07-22 07:30)
PROC: 0W9B40Z Drainage of Left Pleural Cavity with Drainage Device, Percutaneous Endoscopic Approach (ICD-10-PCS; principal; 2017-07-22 07:30)
PROC: [UNRECOGNIZED PROCEDURE] (principal; 2017-07-22 07:30)
DX: J98.6 Disorders of diaphragm (principal); R59.0 Localized enlarged lymph nodes; J45.909 Unspecified asthma, uncomplicated; I48.91 Unspecified atrial fibrillation; I10 Essential (primary) hypertension; M19.90 Unspecified osteoarthritis, unspecified site; F41.9 Anxiety disorder, unspecified; F32.9 Major depressive disorder, single episode, unspecified; Z87.891 Personal history of nicotine dependence; Z79.01 Long term (current) use of anticoagulants; Z79.51 Long term (current) use of inhaled steroids; Z79.899 Other long term (current) drug therapy

== ENCOUNTER → 2017-07-30 | Outpatient (CLI) | payer OTHER ==
[~2017-07-30] MED LIST changes: +CLC100 PO; +TRAM-10 PO
--- NOTE | 2017-07-30 09:30 | DIAGNOSTIC IMAGING REPORT ---
CHEST 2 VIEWS ROUTINE HISTORY: J98.6 Elevated hemidiaphragm [id number] COMPARISON: Chest 07/23/2017. Chest CT 01/29/2017. FINDINGS: Low lung volumes. No pneumothorax. The heart remains mildly enlarged. No evidence for bone edema. Bibasilar linear densities are nonspecific but favor atelectasis. These have slightly improved There may be trace bilateral pleural effusions. No significant elevated hemidiaphragm. IMPRESSION: 1. Slight improvement in the bibasilar linear densities. This may represent resolving atelectasis or pneumonia. 2. Suspect trace bilateral pleural effusions. Electronically signed by: Sanchez Landry M.D. 07/30/2017 9:29 AM Dictated Date/Time: 07/30/2017 9:23 AM
== END | disposition home or self-care (01) ==
LOC: C.RAD1850 09:15
PROVIDERS: ATTEND Surgery
DX: J98.6 Disorders of diaphragm (principal)

== ENCOUNTER → 2017-12-01 | Day surgery (SDC) | payer OTHER ==
[~2017-12-01] VITALS: Ht 172.7 cm; Wt 88.0 kg
[2017-12-01] VITALS (7 sets, daily range): BP systolic 96–170; BP diastolic 69–113; PULSE 63–94; TEMP 36.5; O2SAT 94–99; Ht 172.7 cm; Wt 88.0 kg
[~2017-12-01] MED LIST changes: -METO25TA3 PO; +METO25TA4 PO
--- NOTE | 2017-12-01 07:56 | [facility] Post Operative Brief Note ---
Immediate Operative Summary Operative Date Dec 01, 2017. Pre-Operative Diagnosis Atrial fibrillation Post-Operative Diagnosis Atrial Fibrillation s/p direct current cardioversion Procedure(s) Performed External direct current cardioversion Surgeon Dr. 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
--- NOTE | 2017-12-01 08:05 | Discharge Instructions ---
Discharge Instructions Procedure Procedure Date: Dec 01, 2017. Reason for Visit: Atrial Fib *Dr Mg Doing* W/ Anesthesia. Discharge Discharge Date: Dec 01, 2017. Discharge Diagnosis: Atrial fibrillation s/p external direct current cardioversion. Last Recorded Wt (Kilograms): 88 Anesthesia Post Anesthesia Instructions: If you have had General Anesthesia or IV Sedation: * Do not drive today. * Resume driving when surgeon permits. * Do not make important decisions or sign legal documents today. * Call surgeon for: 1. Temperature elevations greater than 101 degrees F. 2. Uncontrollable pain. 3. Excessive bleeding. 4. Persistent nausea and vomiting. 5. Medication intolerance (nausea, vomiting or rash). * For nausea and vomiting use only clear liquids such as: tea, soda, bouillon until nausea subsides, then gradually increase diet as tolerated. * If you have any concerns or questions, call your surgeon's office. If physician is unavailable and it is an emergency, call 911 or go to the nearest emergency room. Instructions Activity Recommendations: limitations as noted below Return to School/Work: with the following limitations Recommended Home Diet: resume previous diet Allergies: Coded Allergies: No Known Allergies (Unverified , 07/22/17) Provider Instructions ACTIVITY RECOMMENDATIONS: Resume activities as tolerated with no limitations unless specified. _x_ No lifting over 10 pounds for 24 hours. _x_ Do not engage in vigorous exercise, sexual activity, or sports for 24 hours. _x_ Do not drive or operate any motorized equipment for 24 hours. _x_ You may return to work/school tomorrow. Follow Up Follow-up with: Dr. Mg as scheduled. [facility] Recommendations: Call your doctor if: * Temperature above 101 degrees * Pain not relieved by pain medicine ordered * There is increased drainage or redness from any incision * You have any unanswered questions or concerns. Your Doctors Instructions noted above were prepared by provider Mariano Mg. Patient Signature Section: Patient Instructions Signature Page Thaddeus Whatley Patient (or Guardian) Signature/Date: I have read and understand the instructions given to me by my caregivers. Caregiver/RN/Doctor Signature/Date: The above-named patient and/or guardian has received patient instructions on this date. + Original Patient Signature Page (only) stays with chart. Please make copy for patient.
--- NOTE | 2017-12-01 08:14 | CARDIOVERSION ---
DATE OF OPERATION: 12/01/2017 PROCEDURE PERFORMED: External direct current cardioversion. INDICATIONS: Atrial fibrillation. COMPLICATIONS: None. PROCEDURAL SUMMARY: The patient was brought to the cardiac catheterization lab in the usual fasting state. Defibrillator pads were placed in an anterior and posterior position. Conscious sedation provided by the anesthesiologist with propofol. The defibrillator was synced to the QRS complex. When adequate sedation was achieved, a single 200 joule shock was delivered. The patient was successfully converted from atrial fibrillation to normal sinus rhythm. No complications. CONCLUSION: Successful external direct current cardioversion from atrial fibrillation to sinus rhythm with 200 joules. No complications. The patient tolerated the procedure well. I attest to the content of the Intraoperative Record and any orders documented therein. Any exceptions are noted below. MTDD
--- NOTE | 2017-12-01 08:22 | Anesthesiology Progress Note ---
Anesthesia Post Op Note Date & Time Dec 01, 2017 at 08:21 Vital Signs Vital Signs Past 12 Hours Date Time Temp Pulse Resp B/P (MAP) Pulse Ox O2 Delivery O2 Flow Rate FiO2 12/01/17 07:50 64 16 99/66 (77) 94 Room Air 12/01/17 07:47 66 16 96/69 99 Nasal Cannula 5 12/01/17 07:45 66 16 96/69 99 Nasal Cannula 5 12/01/17 07:42 70 16 115/72 99 Nasal Cannula 5 12/01/17 07:39 64 16 132/72 96 Nasal Cannula 5 12/01/17 07:38 73 16 167/99 96 Nasal Cannula 5 12/01/17 06:59 36.5 94 170/113 (132) 98 Room Air Notes Mental Status: alert / awake / arousable, participated in evaluation Pt Amnestic to Procedure: Yes Nausea / Vomiting: adequately controlled Pain: adequately controlled Airway Patency, RR, SpO2: stable & adequate BP & HR: stable & adequate Hydration State: stable & adequate Anesthetic Complications: no major complications apparent
== END | disposition home or self-care (01) ==
LOC: C.CATH 06:43
PROVIDERS: ATTEND Internal Medicine Cardiovascular Disease
DX: I48.0 Paroxysmal atrial fibrillation (principal); J98.6 Disorders of diaphragm; J45.909 Unspecified asthma, uncomplicated; Z87.891 Personal history of nicotine dependence; I10 Essential (primary) hypertension; F41.1 Generalized anxiety disorder; Z79.899 Other long term (current) drug therapy; Z79.01 Long term (current) use of anticoagulants